=== PATIENT | female | born 1975 | race African-American/Black ===

== ENCOUNTER → 2016-03-28 | Outpatient (CLI) | payer MEDICARE, MEDICAID ==
[~2016-03-28] MED LIST: /AMLO25TA PO; ACET65TA OR; ADVI200T PO; ASPI325T OR; ATIV0.5T3 PO; CALC500T49 PO; CIPR500T89 PO; COLA100C PO; DICY1CAP8 PO; ETOD500T2 PO; HYDR-3713 PO; IRON325T3 PO; IRONCAP2 PO; LABE20TAB PO; MAGNESIUM PO; MAXA5TAB10 PO; MILKSUS PO; MIRA255PW PO; MULT1TAB8 PO; NORCOTAB PO; PERC5TAB PO; PERC5TAB8 OR; PERCOCET PO; RIVAROXABAN PO; SENO8.6T9 PO; Sucralfate PO; VITA500046 PO; VITA500C3 PO; VITAMIN; VITD PO; WELLTAB40 PO; XARE15TA PO; XARE20TA PO; tylenol#3 PO
--- NOTE | 2016-03-28 14:00 | REP ---
Pelvic ultrasound: History: Pelvic and perineal pain. Left ovarian cyst. Findings: The uterus is surgically absent. Bladder duke are smooth. Transabdominal and transvaginal scanning show a normal-appearing right ovary. Its dimensions are 3.9 x 2.2 x 2.3 cm. There is a 1.6 cm follicle cyst in the right ovary. Right ovary Doppler flow is normal with resistive index 0.51. The left ovary is enlarged with dimensions of 7.9 x 5.1 x 6.5 cm. There is a cyst within the left ovary measuring 7.1 x 5.7 x 4.5 cm. This appears simple and anechoic. Left ovarian Doppler flow is normal with resistive index 0.50. Impression: 7.1 cm simple cystic lesion left ovary. Post hysterectomy. Normal right ovary. Signed by Jeremiah Barksdale MD 03/28/2016 08:12 P
== END ==
LOC: M RAD 10:04
PROVIDERS: ATTEND Specialist
DX: N83.202 Unspecified ovarian cyst, left side (principal)

== ENCOUNTER 2016-04-02 18:56 | Emergency (ER) | payer MEDICARE, MEDICAID ==
--- NOTE | 2016-04-02 20:12 | EDDOCDS ---
Physician Documentation [facility] Name: Marci Swanson Age: 40 yrs Sex: Female : 1975 Arrival Date: 04/02/2016 Time: 18:56 Bed TR7 Private MD: Isac Lynn P. Disposition: 04/02/16 19:59 Discharged to Home/Self Care. Impression: Pelvic and perineal pain - chronic. - Condition is Stable. - Discharge Instructions: Pelvic Pain, Female. - Prescriptions for Hydrocodone- Acetaminophen 5-325 mg Oral Tablet - take 1 tablet by ORAL route every 6 hours As needed MDD: 4 tabs; 16 tablet. - Medication Reconciliation, Local Pharmacy Hours form. - Follow up: Isac Lynn; When: Call to arrange an appointment; Reason: Wound/Symptom Recheck, Recheck today's complaints, Worsening of conditions, Continuance of care. - Problem is chronic. - Symptoms are unchanged. Historical: - Allergies: Ampicillin (Hives); Bactrim (Hives); Clear Adhesive Tape (Hives); Toradol (BELL); Tramadol HCl (Swelling); - Home Meds: 1. Eliquis oral oral 1 tab daily - PMHx: Anxiety; Endometriosis; Pancreatitis; PE; Rheumatoid Arthritis; - PSHx: Hysterectomy; R patella tendon; - Social history: Smoking status: Patient states was never smoker of tobacco. No barriers to communication noted, The patient speaks fluent Emirati. - Family history: Not pertinent. - : The pt / caregiver states he / she is on anticoagulants: Eliquis Home medication list is obtained from the patient. - Exposure Risk Screening:: None identified. 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 9 in. (175.26 cm) (R); 18:58 Body Mass Index 33.96 (104.33 kg, 175.26 cm) dd6 Signatures: Jorge Luis Andersen RN RN jmb Selwyn Chappell, PA-C PA-C cc10 Ellis,Nereida,RN RN ms18 MTDD
--- NOTE | 2016-04-02 20:12 | EDDOCDS ---
Nurse's Notes [facility] Name: Marci Swanson Age: 40 yrs Sex: Female : 1975 Arrival Date: 04/02/2016 Time: 18:56 Bed TR7 Private MD: Isac Lynn P. Diagnosis: Pelvic and perineal pain-chronic Presentation: 04/02 19:06 Presenting complaint: Patient states: sharp pains in the abdomen with history of hs1 ovarian cysts which per her md state might need to come out at some point. Patient also complaining of history of endometriosis. Risk factors: the patient reports no vaginal bleeding. Adult Sepsis Screening: The patient does not have new or worsening altered mentation. Patient's respiratory rate is less than 22. Systolic blood pressure is greater than 100. Patient has a qSOFA score of 0- Negative Sepsis Screen. Suicide/Homicide risk assessment- the patient denies having any suicidal and/or homicidal ideations and does not present with any other emotional, behavioral or mental health complaints. 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 Transition of care: patient was not received from another setting of care. 19:06 Acuity: ARVIN Level 3 hs1 19:06 Method Of Arrival: Walkin/Carried/Asstd hs1 Triage Assessment: 19:10 General: Appears in no apparent distress, comfortable, Behavior is appropriate for age, ms18 cooperative. Pain: Location: pelvis Pain currently is 9 out of 10 on a pain scale. HIV screening NA for this visit Offered previously. Neurological: Level of Consciousness is awake, alert, obeys commands, Oriented to person, place, time. Respiratory: Airway is patent Respiratory effort is even, unlabored. GI: Abdomen is non- distended Denies nausea, vomiting. : Reports pain with urination. Derm: Skin is pink, warm & dry. 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 Eliquis oral oral 1 tab daily - PMHx: Anxiety; Endometriosis; Pancreatitis; PE; Rheumatoid Arthritis; - PSHx: Hysterectomy; R patella tendon; - Social history: Smoking status: Patient states was never smoker of tobacco. No barriers to communication noted, The patient speaks fluent Serbian. - Family history: Not pertinent. - : The pt / caregiver states he / she is on anticoagulants: Eliquis Home medication list is obtained from the patient. - Exposure Risk Screening:: None identified. Screenin:08 Screening information is obtained from the patient. Fall risk: No risks identified. jmb Assistance ADL's: requires no assistance with activities of daily living. Abuse/DV Screen: The patient / caregiver reports he/she is: not in a situation that causes fear, pain or injury. Nutritional screening: No deficits noted. Advance Directives: Currently, there is no health care proxy. There is no active DNR order. There is no living will. There is no Power of Spinning Machine Operator. home support is adequate. Assessment: 20:08 General: Patient instructed on discharge instructions. Patient asked if there were any b questions regarding discharge, patient stated no. Patient signed discharge instructions. Patient discharged in stable condition.. GI: Abdomen is non- distended Bowel sounds present X 4 quads. Abd is soft and non tender X 4 quads. Vital Signs: 18:58 BP 155 / 91; Pulse 78; Resp 18 S; Temp 98.7(O); Pulse Ox 98% on R/A; Weight 104.33 kg dd6 (R); Height 5 ft. 9 in. (175.26 cm) (R); 18:58 Body Mass Index 33.96 (104.33 kg, 175.26 cm) dd6 Vitals: 18:58 Log In Time: April 02, 2016 at 18:56. dd6 ED Course: 18:57 Patient visited by Robert Corrales PCA. dd6 18:57 Isac Lynn is Private Physician. dd6 18:57 Patient moved to Waiting dd6 19:00 Patient moved to Pre RCE dd6 19:07 Triage Initiated hs1 19:44 Patient moved to Triage 1 jmb 19:54 Selwyn Chappell [facility]-C [facility] cc10 19:54 Srinivasan Buchanan DO is Attending Physician. cc10 19:54 Patient visited by Selwyn Chappell PA-C. cc10 19:54 Patient visited by Selwyn Chappell PA-C. cc10 19:59 Isac Lynn is Referral Physician. cc10 20:07 Patient moved to TR7 [facility] 20:08 The patient / caregiver is instructed regarding the plan of care and ED course. b 20:08 No IV's were initiated during this patient's visit. No procedures done that require jmb assistance. Order Results: There are currently no results for this order. Outcome: 19:59 Discharge ordered by Provider. cc10 20:08 Discharge Assessment: Patient awake, alert and oriented x 3. No cognitive and/or jmb functional deficits noted. Patient verbalized understanding of disposition instructions. Patient awake and alert. obeys commands, Oriented to person, place and time. Patient verbalized understanding of disposition instructions. Patient has no functional deficits. patient administered narcotics - no. The following High Risk Discharge criteria are identified: None. Discharged to home ambulatory. Condition: stable Condition: improved. Discharge instructions given to patient, Instructed on discharge instructions, follow up and referral plans. medication usage, Demonstrated understanding of instructions, medications, Pt was receptive of discharge instructions/ teaching. Prescriptions given X 1. No special radiology studies were completed. Property sent home with patient. 20:10 Patient left the ED. b Signatures: Robert Corrales, BOOK JACKET COVER MACHINE OPERATOR BOOK JACKET COVER MACHINE OPERATOR dd6 Lynne Peterson RN RN hs1 Jorge Luis Andersen RN RN Selwyn Thomas, PA-C PA-C cc10 Nereida Ellis,RN RN ms18 MTDD
--- NOTE | 2016-04-04 21:12 | EDDOCDS ---
Physician Documentation [facility] Name: Marci Swanson Age: 40 yrs Sex: Female : 1975 Arrival Date: 04/02/2016 Time: 18:56 Bed TR7 Private MD: Isac Lynn P. Disposition: 04/02/16 19:59 Discharged to Home/Self Care. Impression: Pelvic and perineal pain - chronic. - Condition is Stable. - Discharge Instructions: Pelvic Pain, Female. - Prescriptions for Hydrocodone- Acetaminophen 5-325 mg Oral Tablet - take 1 tablet by ORAL route every 6 hours As needed MDD: 4 tabs; 16 tablet. - Medication Reconciliation, Local Pharmacy Hours form. - Follow up: Isac Lynn; When: Call to arrange an appointment; Reason: Wound/Symptom Recheck, Recheck today's complaints, Worsening of conditions, Continuance of care. - Problem is chronic. - Symptoms are unchanged. Historical: - Allergies: Ampicillin (Hives); Bactrim (Hives); Clear Adhesive Tape (Hives); Toradol (BELL); Tramadol HCl (Swelling); - Home Meds: 1. Eliquis oral oral 1 tab daily - PMHx: Anxiety; Endometriosis; Pancreatitis; PE; Rheumatoid Arthritis; - PSHx: Hysterectomy; R patella tendon; - Social history: Smoking status: Patient states was never smoker of tobacco. No barriers to communication noted, The patient speaks fluent Belarusian. - Family history: Not pertinent. - : The pt / caregiver states he / she is on anticoagulants: Eliquis Home medication list is obtained from the patient. - Exposure Risk Screening:: None identified. 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 9 in. (175.26 cm) (R); 18:58 Body Mass Index 33.96 (104.33 kg, 175.26 cm) dd6 MDM: 20:19 COUNTS INCLUDE 234 BEDS AT THE [facility] Payment Agreement was scanned into [employer] and attached to record. teresita 20:19 Financial registration complete. teresita 04/03 12:52 T-Sheet-- Draft Copy was scanned into [employer] and attached to record. gb Signatures: Jyothi Mendez, Reg Reg gb Jorge Luis AndersenRN RN miltonb Selwyn Chappell PA-C PA-C cc10 Nereida Ellis RN RN ms18 Rasheeda Haley The chart was reviewed and I authenticate all verbal orders and agree with the evaluation and treatment provided.Attachments: 04/02 20:19 [facility] [place] Payment Agreement gjb 04/03 12:52 T-Sheet-- Draft Copy gb Chart Complete MTDD
--- NOTE | 2016-04-04 21:12 | EDDOCDS ---
Physician Documentation [facility] Name: Marci Swanson Age: 40 yrs Sex: Female : 1975 Arrival Date: 04/02/2016 Time: 18:56 Bed TR7 Private MD: Isac Lynn P. Disposition: 04/02/16 19:59 Discharged to Home/Self Care. Impression: Pelvic and perineal pain - chronic. - Condition is Stable. - Discharge Instructions: Pelvic Pain, Female. - Prescriptions for Hydrocodone- Acetaminophen 5-325 mg Oral Tablet - take 1 tablet by ORAL route every 6 hours As needed MDD: 4 tabs; 16 tablet. - Medication Reconciliation, Local Pharmacy Hours form. - Follow up: Isac Lynn; When: Call to arrange an appointment; Reason: Wound/Symptom Recheck, Recheck today's complaints, Worsening of conditions, Continuance of care. - Problem is chronic. - Symptoms are unchanged. Historical: - Allergies: Ampicillin (Hives); Bactrim (Hives); Clear Adhesive Tape (Hives); Toradol (BELL); Tramadol HCl (Swelling); - Home Meds: 1. Eliquis oral oral 1 tab daily - PMHx: Anxiety; Endometriosis; Pancreatitis; PE; Rheumatoid Arthritis; - PSHx: Hysterectomy; R patella tendon; - Social history: Smoking status: Patient states was never smoker of tobacco. No barriers to communication noted, The patient speaks fluent Hungarian. - Family history: Not pertinent. - : The pt / caregiver states he / she is on anticoagulants: Eliquis Home medication list is obtained from the patient. - Exposure Risk Screening:: None identified. 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 9 in. (175.26 cm) (R); 18:58 Body Mass Index 33.96 (104.33 kg, 175.26 cm) dd6 MDM: 20:19 [facility] Payment Agreement was scanned into [employer] and attached to record. teresita 20:19 Financial registration complete. teresita 04/03 12:52 T-Sheet-- Draft Copy was scanned into [employer] and attached to record. gb Signatures: Jyothi Mendez, Reg Reg gb Jorge Luis AndersenRN RN miltonb Selwyn Chappell PA-C PA-C cc10 Nereida Ellis RN RN ms18 Rasheeda Haley The chart was reviewed and I authenticate all verbal orders and agree with the evaluation and treatment provided.Attachments: 04/02 20:19 [facility] [place] Payment Agreement gjb 04/03 12:52 T-Sheet-- Draft Copy gb Chart Complete MTDD
--- NOTE | 2016-04-04 21:12 | EDDOCDS ---
Nurse's Notes [facility] Name: Marci Swanson Age: 40 yrs Sex: Female : 1975 Arrival Date: 04/02/2016 Time: 18:56 Bed TR7 Private MD: Isac Lynn P. Diagnosis: Pelvic and perineal pain-chronic Presentation: 04/02 19:06 Presenting complaint: Patient states: sharp pains in the abdomen with history of hs1 ovarian cysts which per her md state might need to come out at some point. Patient also complaining of history of endometriosis. Risk factors: the patient reports no vaginal bleeding. Adult Sepsis Screening: The patient does not have new or worsening altered mentation. Patient's respiratory rate is less than 22. Systolic blood pressure is greater than 100. Patient has a qSOFA score of 0- Negative Sepsis Screen. Suicide/Homicide risk assessment- the patient denies having any suicidal and/or homicidal ideations and does not present with any other emotional, behavioral or mental health complaints. 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 Transition of care: patient was not received from another setting of care. 19:06 Acuity: ARVIN Level 3 hs1 19:06 Method Of Arrival: Walkin/Carried/Asstd hs1 Triage Assessment: 19:10 General: Appears in no apparent distress, comfortable, Behavior is appropriate for age, ms18 cooperative. Pain: Location: pelvis Pain currently is 9 out of 10 on a pain scale. HIV screening NA for this visit Offered previously. Neurological: Level of Consciousness is awake, alert, obeys commands, Oriented to person, place, time. Respiratory: Airway is patent Respiratory effort is even, unlabored. GI: Abdomen is non- distended Denies nausea, vomiting. : Reports pain with urination. Derm: Skin is pink, warm & dry. 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 Eliquis oral oral 1 tab daily - PMHx: Anxiety; Endometriosis; Pancreatitis; PE; Rheumatoid Arthritis; - PSHx: Hysterectomy; R patella tendon; - Social history: Smoking status: Patient states was never smoker of tobacco. No barriers to communication noted, The patient speaks fluent Sierra Leonean. - Family history: Not pertinent. - : The pt / caregiver states he / she is on anticoagulants: Eliquis Home medication list is obtained from the patient. - Exposure Risk Screening:: None identified. Screenin:08 Screening information is obtained from the patient. Fall risk: No risks identified. jmb Assistance ADL's: requires no assistance with activities of daily living. Abuse/DV Screen: The patient / caregiver reports he/she is: not in a situation that causes fear, pain or injury. Nutritional screening: No deficits noted. Advance Directives: Currently, there is no health care proxy. There is no active DNR order. There is no living will. There is no Power of Dog Boarder. home support is adequate. Assessment: 20:08 General: Patient instructed on discharge instructions. Patient asked if there were any b questions regarding discharge, patient stated no. Patient signed discharge instructions. Patient discharged in stable condition.. GI: Abdomen is non- distended Bowel sounds present X 4 quads. Abd is soft and non tender X 4 quads. Vital Signs: 18:58 BP 155 / 91; Pulse 78; Resp 18 S; Temp 98.7(O); Pulse Ox 98% on R/A; Weight 104.33 kg dd6 (R); Height 5 ft. 9 in. (175.26 cm) (R); 18:58 Body Mass Index 33.96 (104.33 kg, 175.26 cm) dd6 Vitals: 18:58 Log In Time: April 02, 2016 at 18:56. dd6 ED Course: 18:57 Patient visited by Robert Corrales PCA. dd6 18:57 Isac Lynn is Private Physician. dd6 18:57 Patient moved to Waiting dd6 19:00 Patient moved to Pre RCE dd6 19:07 Triage Initiated hs1 19:44 Patient moved to Triage 1 jmb 19:54 Selwyn Chappell PA-C [facility] cc[facility] 19:54 Srinivasan Buchanan DO is Attending Physician. cc10 19:54 Patient visited by Selwyn Chappell PA-C. cc10 19:54 Patient visited by Selwyn Chappell PA-C. cc10 19:59 Isac Lynn is Referral Physician. cc10 20:07 Patient moved to TR7 b 20:08 The patient / caregiver is instructed regarding the plan of care and ED course. jmb 20:08 No IV's were initiated during this patient's visit. No procedures done that require jmb assistance. 20:18 Patient name changed from Marci\S\L\S\Sky\S\ to Marci\S\ \S\Sky. EDMS 20:19 [facility] [place] Agreement was scanned into [employer] and attached to record. gjb 04/03 12:52 T-Sheet-- Draft Copy was scanned into [employer] and attached to record. gb Order Results: There are currently no results for this order. Outcome: 04/02 19:59 Discharge ordered by Provider. cc10 20:08 Discharge Assessment: Patient awake, alert and oriented x 3. No cognitive and/or jmb functional deficits noted. Patient verbalized understanding of disposition instructions. Patient awake and alert. obeys commands, Oriented to person, place and time. Patient verbalized understanding of disposition instructions. Patient has no functional deficits. patient administered narcotics - no. The following High Risk Discharge criteria are identified: None. Discharged to home ambulatory. Condition: stable Condition: improved. Discharge instructions given to patient, Instructed on discharge instructions, follow up and referral plans. medication usage, Demonstrated understanding of instructions, medications, Pt was receptive of discharge instructions/ teaching. Prescriptions given X 1. No special radiology studies were completed. Property sent home with patient. 20:10 Patient left the ED. robert Signatures: [facility] Jyothi Mendez, Reg Reg gb Robert Corrales, HEALTHCARE SALES REPRESENTATIVE HEALTHCARE SALES REPRESENTATIVE dd6 yLnne Peterson, RN RN hs1 Jorge Luis AndersenRN RN miltonb Selwyn Chappell, PA-C PA-C cc10 Nereida Ellis RN RN ms18 Rasheeda Haley Chart Complete MTDD
[2016-04-13] MEDS ORDERED: MULT1CHW PO (09:16)
[2016-04-13] MEDS ORDERED: VITA250L PO (09:16)
[2016-04-13] MEDS ORDERED: HYDR-3713 PO (09:16)
[2016-04-13] MEDS ORDERED: VITA200038 PO (09:16)
[2016-04-13] MEDS ORDERED: HEPA10004 INJ (09:16)
== END 2016-04-02 20:10 | disposition home or self-care (01) ==
LOC: M ED 18:56
DX: G89.29 Other chronic pain (principal); R10.2 Pelvic and perineal pain; F41.9 Anxiety disorder, unspecified; M06.9 Rheumatoid arthritis, unspecified; Z86.711 Personal history of pulmonary embolism; Z90.79 Acquired absence of other genital organ(s); Z79.01 Long term (current) use of anticoagulants; Z88.1 Allergy status to other antibiotic agents; Z88.5 Allergy status to narcotic agent; Z91.09 Other allergy status, other than to drugs and biological substances

== ENCOUNTER → 2016-04-14 | Outpatient (CLI) | payer MEDICARE, MEDICAID ==
[~2016-04-14] MED LIST changes: +HEPA10004 INJ; +MULT1CHW PO; +VITA200038 PO; +VITA250L PO
[2016-04-14 12:27] LABS: MEAN CORPUSCULAR HEMOGLOBIN 26.3 pg (27.0-33.0); MEAN CORPUSCULAR HGB CONC 31.1 g/dl (32.0-36.5); MEAN CORPUSCULAR VOLUME 84.5 fl (80.0-96.0); WHITE BLOOD COUNT 7.2 K/mm3 (4.0-10.0)
--- NOTE | 2016-04-15 11:21 | ECGEPIP ---
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
== END ==
LOC: M LAB 11:04
PROVIDERS: ATTEND Anesthesiology
DX: Z01.812 Encounter for preprocedural laboratory examination (principal); R00.1 Bradycardia, unspecified; I73.9 Peripheral vascular disease, unspecified; Z86.711 Personal history of pulmonary embolism

== ENCOUNTER → 2016-04-20 | Day surgery (SDC) | payer MEDICARE, MEDICAID ==
[~2016-04-20] VITALS: Ht 175.3 cm; Wt 106.6 kg
[~2016-04-20] MED LIST changes: +BUPIVACAINE HCL 0.25% 30 ML VIAL As Ordered ONE; +BUPIVACAINE HCL 0.25% 30 ML VIAL XX ONE; +GLYCOPYRROLATE INJ 0.2 MG/ML 2 ML VIAL As Ordered ONE; +HYDROmorphone HCL 2 MG/ML 1ML VIAL (J1170) As Ordered ONE; +LIDOCAINE 2% INJ 100 MG/5 ML SDV (FOR ANES.) As Ordered ONE; +LOVE1INJ SC; +LR 1,000 ML IV SCH; +MEPERIDINE INJ 25 MG/ML VIAL (J2175) IV PRN; +METHYLENE BLUE 1% 10 ML VIAL (Q9968) As Ordered ONE; +METOCLOPRAMIDE INJ 10MG/2ML VIAL (J2765) IV PRN; +MIDAZOLAM INJ 2 MG/2 ML VIAL (J2250) As Ordered ONE; +NEOSTIGMINE 1MG/ML 5 ML SYRINGE (J2710) As Ordered ONE; +NORCO, ANEXSIA 5/325MG TABLET (HYDROcodone/ACETAMINOPHEN) PO PRN; +ONDANSETRON 4MG/2ML VIAL (J2405) As Ordered ONE; +ONDANSETRON 4MG/2ML VIAL (J2405) IV PRN; +PERCOCET 5MG/325MG TAB PO PRN; +PROPOFOL 200 MG/20 ML VIAL As Ordered ONE; +ROCURONIUM BROMIDE 50 MG/5 ML VIAL As Ordered ONE; +dexameTHASONE 4 MG/ML 1ML VIAL (J1100) As Ordered ONE; +fentaNYL 100 MCG/2 ML INJECTION (J3010) As Ordered ONE; +fentaNYL 250 MCG/5 ML INJECTION (J3010) As Ordered ONE
[2016-04-20] MEDS: fentaNYL 100 MCG/2 ML INJECTION (J3010) IV PRN ×4 (10:48→11:03)
[2016-04-20 14:30] VITALS: BP 167/92
--- NOTE | 2016-04-20 16:44 | RO ---
DATE OF PROCEDURE: 04/20/2016 PREOPERATIVE DIAGNOSIS: Left ovarian cyst. POSTOPERATIVE DIAGNOSIS: Left ovarian cyst. PROCEDURE: Laparoscopic left ovarian cystectomy, lysis of adhesions, cystoscopy. SURGEON: Isac Lynn MD SELF PAY REPRESENTATIVE: Maru Arthur ANESTHESIA: General endotracheal. ESTIMATED BLOOD LOSS: 100 mL. URINE OUTPUT: 2000 mL. FINDINGS: 8 cm cystoadenoma of the left ovary. Normal appearing Right ovary. Mild endometriosis in the pelvis. Left ovary was adhesed medially to the sigmoid colon and inferiorly to the bladder, laterally to the pelvic side wall including iliac vessels and ureter. There were bilateral ureteral jets identified on cystoscopy. DESCRIPTION OF PROCEDURE: Operative summary: The patient taken to the operating room, where general endotracheal anesthesia was induced. She was prepped and draped in sterile fashion in the dorsal lithotomy position. A Sosa catheter was placed. A sponge stick was placed in the vagina. A periumbilical incision was made with a scalpel. A Veress needle was placed through this incision while tenting up on the skin of the abdomen. Intra-abdominal location of the Veress needle was assessed with the use of a saline-filled syringe. A pneumoperitoneum was created. An 11 mm trocar was placed through this incision with tenting up on skin of the abdomen. Three 5 mm suprapubic ports were placed under direct visualization without difficulty. Attention was turned to the pelvic mass. The mass was grasped with a grasping instrument and blunt dissection was first undertaken. Eventually sharp dissection using endoshears as well as a PK dissecting device was undertaken. The sigmoid colon was dissected off the pelvic mass immediately. Adhesions of the pelvic mass of the bladder were dissected off sharply. Lateral attachments to the pelvic sidewall were dissected sharply. The extra iliac vessel was exposed and found to be adjacent to the mass. The left ureter was identified coursing along the inferolateral border of the mass itself. The cyst was opened and clear fluid was evacuated using the suction supply chain technician. The cyst was amputated and removed through the umbilical port. Excess cyst capsule was then bluntly dissected off the ovary. The cyst was removed in it entirety. Part of the ovary was not able to be removed because it was essentially adhered to critical structures of the ureter and extra iliac vessels. The decision was made to leave the ovary in place and not risk the complication. Cystoscopy was performed using a 70 degree cystoscope. The patient received Methylene blue dye intravenously. Bilateral ureteral jets were identified and the bladder mucosa appeared normal. Darvin was sprayed over raw surface areas of the pelvis and good hemostasis was noted. The pneumoperitoneum was released. All instruments removed. Sponge, needle, and instrument counts were correct. The skin was closed with 4-0 Monocryl subcuticular sutures. Patient went to the recovery room in stable condition.
== END | disposition home or self-care (01) ==
LOC: M SDC 05:51
PROVIDERS: ATTEND Specialist
DX: D27.1 Benign neoplasm of left ovary (principal); Z86.711 Personal history of pulmonary embolism; Z88.0 Allergy status to penicillin; Z88.2 Allergy status to sulfonamides; Z88.8 Allergy status to other drugs, medicaments and biological substances; Z79.02 Long term (current) use of antithrombotics/antiplatelets; F41.9 Anxiety disorder, unspecified
CPT/HCPCS: 36415; 58662; 85014; 85018; 88305; A6024; J1100; J1170; J2250; J2405; J2710; J2765; J3010; Q9968

== ENCOUNTER 2016-04-28 11:11 | Emergency (ER) | payer MEDICARE, MEDICAID ==
[~2016-04-28 11:11] MED LIST changes: -BUPIVACAINE HCL 0.25% 30 ML VIAL As Ordered ONE; -BUPIVACAINE HCL 0.25% 30 ML VIAL XX ONE; -GLYCOPYRROLATE INJ 0.2 MG/ML 2 ML VIAL As Ordered ONE; -HYDROmorphone HCL 2 MG/ML 1ML VIAL (J1170) As Ordered ONE; -LIDOCAINE 2% INJ 100 MG/5 ML SDV (FOR ANES.) As Ordered ONE; -LR 1,000 ML IV SCH; -MEPERIDINE INJ 25 MG/ML VIAL (J2175) IV PRN; -METHYLENE BLUE 1% 10 ML VIAL (Q9968) As Ordered ONE; -METOCLOPRAMIDE INJ 10MG/2ML VIAL (J2765) IV PRN; -MIDAZOLAM INJ 2 MG/2 ML VIAL (J2250) As Ordered ONE; -NEOSTIGMINE 1MG/ML 5 ML SYRINGE (J2710) As Ordered ONE; -NORCO, ANEXSIA 5/325MG TABLET (HYDROcodone/ACETAMINOPHEN) PO PRN; -ONDANSETRON 4MG/2ML VIAL (J2405) As Ordered ONE; -ONDANSETRON 4MG/2ML VIAL (J2405) IV PRN; -PERCOCET 5MG/325MG TAB PO PRN; -PROPOFOL 200 MG/20 ML VIAL As Ordered ONE; -ROCURONIUM BROMIDE 50 MG/5 ML VIAL As Ordered ONE; -dexameTHASONE 4 MG/ML 1ML VIAL (J1100) As Ordered ONE; -fentaNYL 100 MCG/2 ML INJECTION (J3010) As Ordered ONE; -fentaNYL 250 MCG/5 ML INJECTION (J3010) As Ordered ONE
[2016-04-28 12:13] LABS: BASO % 0.2 % (0.0-1.0); EOS # 0.4 K/mm3 (0.0-0.50); EOS % 3.3 % (0.0-3.0); LARGE UNSTAINED CELL # 0.1 K/mm3 (0.0-0.4); LARGE UNSTAINED CELL % 0.8 % (0.0-4.0); LYMPH % 17.4 % (24.0-44.0); MEAN CORPUSCULAR HEMOGLOBIN 26.3 pg (27.0-33.0); MEAN CORPUSCULAR HGB CONC 31.7 g/dl (32.0-36.5); MONO # 0.5 K/mm3 (0.0-0.8); MONO % 4.8 % (0.0-5.0); NEUTROPHILS # 8.2 K/mm3 (1.8-7.7); NEUTROPHILS % 73.6 % (36.0-66.0); PLATELET COUNT, AUTOMATED 299 k/mm3 (150-450); RED CELL DISTRIBUTION WIDTH 12.9 % (11.5-14.5); WHITE BLOOD COUNT 11.2 K/mm3 (4.0-10.0)
[2016-04-28 12:28] LABS: ALBUMIN 3.5 GM/DL (3.2-5.2); ALBUMIN/GLOBULIN RATIO 0.78 (1.00-1.93); ALKALINE PHOSPHATASE 119 U/L (45-117); ALT/SGPT 60 U/L (12-78); ANION GAP 8 MEQ/L (8-16); AST/SGOT 30 U/L (15-37); BILIRUBIN,DIRECT 0.1 MG/DL (0.0-0.2); BILIRUBIN,TOTAL 0.5 MG/DL (0.2-1.0); BLOOD UREA NITROGEN 19 MG/DL (7-18); CALCIUM LEVEL 8.8 MG/DL (8.5-10.1); CARBON DIOXIDE LEVEL 29 MEQ/L (21-32); CHLORIDE LEVEL 104 MEQ/L (98-107); CREATININE FOR GFR 1.06 MG/DL (0.55-1.02); GLOMERULAR FILTRATION RATE > 60.0 (>58); GLUCOSE, FASTING 106 MG/DL (70-105); POTASSIUM SERUM 4.2 MEQ/L (3.5-5.1); SODIUM LEVEL 141 MEQ/L (136-145)
[2016-04-28] MEDS ORDERED: MORPHINE 4 MG/ML 1ML SYRINGE As Ordered ONE ×2 (12:32→13:34)
[2016-04-28] MEDS ORDERED: ONDANSETRON 4MG/2ML VIAL (J2405) As Ordered ONE (12:32)
[2016-04-28] MEDS ORDERED: GASTROGRAFIN SOLUTION 30ML (Q9963) As Ordered ONE (13:45)
[2016-04-28] MEDS ORDERED: ISOVUE-370 76% 100ML VIAL (Q9967) As Ordered ONE (15:08)
[2016-04-28] MEDS ORDERED: diphenhydrAMINE 25 MG CAP As Ordered ONE ×2 (15:23→15:25)
[2016-04-28] MEDS ORDERED: fentaNYL 100 MCG/2 ML INJECTION (J3010) As Ordered ONE (15:24)
--- NOTE | 2016-04-28 15:38 | REP ---
Clinical: Lower abdominal pain. Technique: Axial contrast enhanced images from the lung bases to the pubic symphysis using oral and 100 ml Isovue 370 intravenous contrast material. Comparison: 08/05/2015. Findings: Lung bases clear. Visualized heart and pericardium normal. Atherosclerotic changes to the coronary arteries noted. Liver, spleen, pancreas, gallbladder, bilateral adrenal glands and kidneys are normal. The enteric system is without obstruction or acute inflammatory process. Normal terminal ileum and appendix identified in the right lower quadrant. Sigmoid diverticula noted without acute diverticulitis. Pelvis demonstrates normal bladder and heterogeneous appearance to the bilateral ovaries which likely represent physiologic change. The patient is status post hysterectomy. No pelvic fluid or ascites. No mass or abscess/drainable collection. Vasculature is normal and without aneurysm. No free air. No adenopathy. Skeletal structures intact. Impression: No acute intra-abdominal or pelvic pathology appreciated. Sigmoid diverticula without acute diverticulitis. Signed by Jones Maynard MD 04/28/2016 03:29 P
--- NOTE | 2016-04-28 15:40 | REP ---
Clinical: Acute chest pain and shortness of breath. Technique: Axial contrast enhanced images from the thoracic inlet to the upper abdomen using 100 ml Isovue 370 intravenous contrast material with coronal and sagittal re-formations. Findings: Satisfactory enhancement of the pulmonary vasculature is achieved and no filling defects are identified to suggest pulmonary embolus. Thoracic aorta is normal caliber without aneurysm or dissection. Heart and pericardium are normal. Bilateral lung arriola demonstrate mild posterior dependent changes and are otherwise clear without acute pulmonary parenchymal consolidation or atelectasis. No nodule or mass lesion. No pleural effusion/reaction. No pneumothorax. No adenopathy. Impression: No evidence for pulmonary embolus. No acute pleuroparenchymal or mediastinal process. Signed by Jones Maynard MD 04/28/2016 03:31 P
--- NOTE | 2016-04-28 16:19 | EDDOCDS ---
Nurse's Notes [facility] Name: Marci Swanson Age: 40 yrs Sex: Female : 1975 Arrival Date: 04/28/2016 Time: 11:11 Bed 8 Private MD: Diagnosis: Abdominal and pelvic pain;Other chest pain;Dehydration-Mild Presentation: 04/28 11:18 Presenting complaint: Patient states: had left ovary removed last Saturday. Pt reports dsf abdominal pain, hives, itching and not feeling well. Risk factors: the patient reports no vaginal bleeding. Adult Sepsis Screening: The patient does not have new or worsening altered mentation. Patient's respiratory rate is less than 22. Systolic blood pressure is greater than 100. Patient has a qSOFA score of 0- Negative Sepsis Screen. Suicide/Homicide risk assessment- the patient denies having any suicidal and/or homicidal ideations and does not present with any other emotional, behavioral or mental health complaints. Status: Patient is not a career services officer or dependent. Transition of care: patient was not received from another setting of care. 11:18 Acuity: ARVIN Level 3 dsf 11:18 Method Of Arrival: Walkin/Carried/Asstd dsf Triage Assessment: 11:20 General: Appears in no apparent distress, Behavior is appropriate for age, cooperative. dsf Pain: Location: left anterior chest wall Pain currently is 3 out of 10 on a pain scale. Pain does not radiate. Quality of pain is described as sharp, Pain began 4 days ago Is intermittent. Pain: Location: right lower quadrant and left lower quadrant Pain currently is 8 out of 10 on a pain scale. Quality of pain is described as crampy, sharp. HIV screening NA for this visit Offered previously. Respiratory: Reports shortness of breath at rest on exertion since 2 days ago. GI: Reports lower abdominal pain, Pain is 8 out of 10 on a pain scale. 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 hydrocodone-acetaminophen 5-325 mg Oral tab 2 tabs every 6 hours (Last dose: 04/27/2016) 2. Lovenox 40 mg/0.4 mL Sub-Q syrg once daily (Last dose: 04/27/2016) - PMHx: Anxiety; Endometriosis; Pancreatitis; PE; Rheumatoid Arthritis; - PSHx: Ovarian Cystectomy- Left; Hysterectomy; R patella tendon; - Social history: Smoking status: Patient states was never smoker of tobacco. No barriers to communication noted, The patient speaks fluent Bengali, Speaks appropriately for age. - Family history: Not pertinent. - : The pt / caregiver states he / she is on anticoagulants: Lovenox. Home medication list is obtained from the patient. - Exposure Risk Screening:: None identified. Screenin:51 Screening information is obtained from the patient. Fall risk: No risks identified. ja5 Assistance ADL's: requires no assistance with activities of daily living. Abuse/DV Screen: The patient / caregiver reports he/she is: not in a situation that causes fear, pain or injury. Nutritional screening: On no prescribed diet. Advance Directives: Currently, there is a health care proxy, Monie Boyle, mother. home support is inadequate. Assessment: 11:47 General: Appears uncomfortable, Behavior is appropriate for age, cooperative. Pain: ja5 Location: right lower quadrant and left lower quadrant Pain currently is 8 out of 10 on a pain scale. Neurological: Level of Consciousness is awake, alert, Oriented to person, place, time. Cardiovascular: Capillary refill < 3 seconds Heart tones S1 S2 present. Respiratory: Airway is patent Respiratory effort is even, unlabored, Breath sounds are clear bilaterally. GI: Abdomen is obese, bruised on right lower quadrant and left lower quadrant at lap sites from surgery Bowel sounds present X 4 quads. Abd is tender to palpation in right lower quadrant and left lower quadrant. Derm: Skin is pink, warm & dry. 12:20 General: Patient is laying in stretcher with visitors at bedside. She is awake and ja5 alert with even unlabored respirations. 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 Patient states that she has no needs at this time. . 13:37 General: Patient is laying in stretcher, states that she is still having pain to her ja5 abdomen. Her respirations are even and unlabored, SR on salesman/owner. Visitors at bedside, bed in low position, call light in reach, watching television.. 14:52 General: Patient in stretcher with visitors at bedside, NS IV fluids running, patient ja5 is awake and alert, SR on salesman/owner. Respirations are even and unlabored. Patient states the two doses of morphine "hardly touched my pain" and rates it at a 7/10 with sharp pains running up her vagina. Provider notified. . 16:13 General: Appears in no apparent distress, Behavior is cooperative, drowsy. General: ld5 First contact with pt. This RN in to discharge pt. Pt requesting pain medication to go home with. This was discussed with provider. Provider recommended tylenol and motrin and following up with Dr. Lynn on Saturday. Pain: Pain currently is 6 out of 10 on a pain scale. Neurological: Level of Consciousness is awake, obeys commands. Respiratory: Airway is patent Respiratory effort is even, unlabored. Vital Signs: 11:15 BP 196 / 110; Pulse 108; Resp 18; Temp 97.2(T); Pulse Ox 98% on R/A; Weight 95.25 kg lr2 (R); Height 5 ft. 9 in. (175.26 cm) (R); Pain 8/10; 11:45 BP 156 / 86 (auto/); ja5 11:46 Pulse 90 MON; Pulse Ox 97% ; ja5 12:38 Pulse 76 MON; Pulse Ox 99% ; ja5 12:39 BP 156 / 91 (auto/); ja5 13:08 Pulse 74 MON; Pulse Ox 95% ; ja5 13:09 BP 150 / 91 (auto/); ja5 13:38 Pulse 74 MON; Pulse Ox 98% ; ja5 13:39 BP 146 / 82 (auto/); ja5 13:40 Pain 8/10; ja5 14:08 Pulse 74 MON; Pulse Ox 98% ; ja5 14:09 BP 154 / 105 (auto/); ja5 14:52 Pain 7/10; ja5 14:58 BP 135 / 90; Pulse 74; Resp 16; Temp 97.1; Pulse Ox 98% on R/A; Pain 7/10; ja5 16:10 BP 146 / 80; Pulse 82 MON; Resp 16; Temp 97.2; Pulse Ox 97% ; ld5 11:15 Body Mass Index 31.01 (95.25 kg, 175.26 cm) lr2 Vitals: 11:15 Log In Time: April 28, 2016 at 11:11. lr2 ED Course: 11:13 Patient visited by Shirin Lancaster. lr2 11:13 Patient moved to Waiting lr2 11:14 Patient moved to Pre RCE lr2 11:19 Triage Initiated dsf 11:23 Patient moved to PR / srm 11:37 Patient visited by Olivia Cota PCA. ct3 11:37 Linette Mccabe,RN is Primary Nurse. srm 11:37 Patient moved to 8 srm 11:37 EKG done. (by ED staff). Reviewed by Mariposa Thompson MD. ct3 12:08 Basic Metabolic Profile Sent. ja5 12:08 CBC with Diff Sent. ja5 12:08 Lipase Sent. ja5 12:09 Cleo Che FNP is PHCP. le 12:09 Inserted saline lock: 20 gauge in right antecubital area. ja5 12:11 Patient visited by Linette Mccabe RN. ja5 12:13 Patient visited by Cleo Che FNP. le 12:17 Patient visited by Cleo Che FNP. le 12:19 Primary Nurse role handed off by Linette Mccabe,NICHOLE ml6 12:29 Linette Mccabe RN is Primary Nurse. ja5 12:35 Patient name changed from Marci\\S\\Latarish\\S\\Sky\\S\\ to Marci\\S\\ \\S\\Sky. EDMS 12:36 [facility] Payment Agreement was scanned into [employer] and attached to record. lg 12:44 Patient visited by Linette Mccabe RN. ja5 12:44 Urinalysis Sent. ja5 13:35 Patient visited by Linette Mccabe RN. ja5 13:50 Patient visited by Linette Mccabe RN. ja5 14:55 Patient visited by Linette Mccabe RN. ja5 15:22 Patient visited by Linette Mccabe RN. ja5 15:48 CT ABD & PELVIS: IV and Oral Contrast Returned. EDMS 15:48 CT Chest Angio R/O PE Returned. EDMS 15:50 Isac Lynn MD is Referral Physician. le 16:10 The patient / caregiver is instructed regarding the plan of care and ED course. ld5 Accompanied by Patient has correct armband on for positive identification. 16:10 Discontinued lock intact, bleeding controlled, pressure dressing applied, No ld5 redness/swelling at site. No procedures done that require assistance. 16:18 Patient visited by Shirin Flores RN. ld5 Administered Medications: 12:35 Drug: NS 0.9% 1000 ml [sodium chloride 0.9 % intravenous solution] Route: IV; Rate: ja5 bolus; Site: right antecubital; 12:35 Drug: morphine 4 mg [morphine 4 mg/mL intravenous cartridge (1 mL)] Route: IVP; Site: ja5 right antecubital; 12:40 Drug: Ondansetron 4 mg [ondansetron HCl 2 mg/mL intravenous solution (2 mL)] Route: ja5 IVP; Site: right antecubital; 13:40 Drug: morphine 4 mg [morphine 4 mg/mL intravenous cartridge (1 mL)] Route: IVP; Site: ja5 right antecubital; 14:52 Follow up: Pain 09/17 Adult ja5 13:51 Drug: Diatrizoate Meglumine & Sodium 10 ml [diatrizoate meglumine and diat.sodium 66 bcj %-10 % oral solution (10 mL)] Route: PO; 14:28 Drug: Diatrizoate Meglumine & Sodium 10 ml [diatrizoate meglumine and diat.sodium 66 bcj %-10 % oral solution (10 mL)] Route: PO; 14:43 Drug: NS 0.9% 1000 ml [sodium chloride 0.9 % intravenous solution] Route: IV; Rate: 100 ja5 mL/hr; Site: right antecubital; 16:18 Follow up: IV Status: Completed infusion; IV Intake: 200ml ld5 15:27 Drug: diphenhydrAMINE 50 mg [diphenhydramine 25 mg capsule (2 caps)] Route: PO; ja5 15:29 Drug: fentaNYL (PF) 50 mcg [fentanyl (PF) 50 mcg/mL injection solution (1 mL)] Route: ja5 IVP; Site: right antecubital; 16:18 Follow up: Response: Confirmed pt not driving.; Pain is decreased ld5 Intake: 16:18 IV: 200.00ml; Total: 200.00ml. ld5 Order Results: Lab Order: Basic Metabolic Profile; SPEC'M 04/28/16 12:03 Test: GLUCOSE, FASTING; Value: 106; Range: 70-105; Abnormal: Above high normal; Units: MG/DL; Status: F Test: BLOOD UREA NITROGEN; Value: 19; Range: 7-18; Abnormal: Above high normal; Units: MG/DL; Status: F Test: CREATININE FOR GFR; Value: 1.06; Range: 0.55-1.02; Abnormal: Above high normal; Units: MG/DL; Status: F Test: GLOMERULAR FILTRATION RATE; Value: > 60.0; Range: >58; Status: F Test: SODIUM LEVEL; Value: 141; Range: 136-145; Units: MEQ/L; Status: F Test: POTASSIUM SERUM; Value: 4.2; Range: 3.5-5.1; Units: MEQ/L; Status: F Test: CHLORIDE LEVEL; Value: 104; Range: 98-107; Units: MEQ/L; Status: F Test: CARBON DIOXIDE LEVEL; Value: 29; Range: 21-32; Units: MEQ/L; Status: F Test: ANION GAP; Value: 8; Range: 8-16; Units: MEQ/L; Status: F Test: CALCIUM LEVEL; Value: 8.8; Range: 8.5-10.1; Units: MG/DL; Status: F Test Note: ; Units are mL/min/1.73 m2 Chronic Kidney Disease Staging per NKF: Stage I & II GFR >=60 Normal to Mildly Decreased Stage III GFR 30-59 Moderately Decreased Stage IV GFR 15-29 Severely Decreased Stage V GFR <15 Very Little GFR Left ESRD GFR <15 on CUSTOMS INSPECTOR Lab Order: CBC with Diff; SPEC'M 04/28/16 12:03 Test: WHITE BLOOD COUNT; Value: 11.2; Range: 4.0-10.0; Abnormal: Above high normal; Units: K/mm3; Status: F Test: RED BLOOD COUNT; Value: 4.66; Range: 4.00-5.40; Units: M/mm3; Status: F Test: HEMOGLOBIN; Value: 12.3; Range: 12.0-16.0; Units: g/dl; Status: F Test: HEMATOCRIT; Value: 38.7; Range: 36.0-47.0; Units: %; Status: F Test: MEAN CORPUSCULAR VOLUME; Value: 83.0; Range: 80.0-96.0; Units: fl; Status: F Test: MEAN CORPUSCULAR HEMOGLOBIN; Value: 26.3; Range: 27.0-33.0; Abnormal: Below low normal; Units: pg; Status: F Test: MEAN CORPUSCULAR HGB CONC; Value: 31.7; Range: 32.0-36.5; Abnormal: Below low normal; Units: g/dl; Status: F Test: RED CELL DISTRIBUTION WIDTH; Value: 12.9; Range: 11.5-14.5; Units: %; Status: F Test: PLATELET COUNT, AUTOMATED; Value: 299; Range: 150-450; Units: k/mm3; Status: F Test: NEUTROPHILS %; Value: 73.6; Range: 36.0-66.0; Abnormal: Above high normal; Units: %; Status: F Test: LYMPH %; Value: 17.4; Range: 24.0-44.0; Abnormal: Below low normal; Units: %; Status: F Test: MONO %; Value: 4.8; Range: 0.0-5.0; Units: %; Status: F Test: EOS %; Value: 3.3; Range: 0.0-3.0; Abnormal: Above high normal; Units: %; Status: F Test: BASO %; Value: 0.2; Range: 0.0-1.0; Units: %; Status: F Test: LARGE UNSTAINED CELL %; Value: 0.8; Range: 0.0-4.0; Units: %; Status: F Test: NEUTROPHILS #; Value: 8.2; Range: 1.8-7.7; Abnormal: Above high normal; Units: K/mm3; Status: F Test: LYMPH #; Value: 2.0; Range: 1.5-4.5; Units: K/mm3; Status: F Test: MONO #; Value: 0.5; Range: 0.0-0.8; Units: K/mm3; Status: F Test: EOS #; Value: 0.4; Range: 0.0-0.50; Units: K/mm3; Status: F Test: BASO #; Value: 0.0; Range: 0.0-0.2; Units: K/mm3; Status: F Test: LARGE UNSTAINED CELL #; Value: 0.1; Range: 0.0-0.4; Units: K/mm3; Status: F Lab Order: Lipase; [facility] 04/28/16 12:03 Test: LIPASE; Value: 139; Range: 73-393; Units: U/L; Status: F Lab Order: Liver Profile; [facility] 04/28/16 12:03 Test: AST/SGOT; Value: 30; Range: 15-37; Units: U/L; Status: F Test: ALT/SGPT; Value: 60; Range: 12-78; Units: U/L; Status: F Test: ALKALINE PHOSPHATASE; Value: 119; Range: 45-117; Abnormal: Above high normal; Units: U/L; Status: F Test: BILIRUBIN,TOTAL; Value: 0.5; Range: 0.2-1.0; Units: MG/DL; Status: F Test: BILIRUBIN,DIRECT; Value: 0.1; Range: 0.0-0.2; Units: MG/DL; Status: F Test: TOTAL PROTEIN; Value: 8.0; Range: 6.4-8.2; Units: GM/DL; Status: F Test: ALBUMIN; Value: 3.5; Range: 3.2-5.2; Units: GM/DL; Status: F Test: ALBUMIN/GLOBULIN RATIO; Value: 0.78; Range: 1.00-1.93; Abnormal: Below low normal; Status: F Lab Order: Urinalysis; [facility] 04/28/16 11:40 Test: APPEARANCE, URINE; Value: CLEAR; Range: CLEAR; Status: F Test: COLOR, URINE; Value: YELLOW; Range: YELLOW; Status: F Test: PH,URINE; Value: 6.0; Range: 5.0-9.0; Units: UNITS; Status: F Test: SPECIFIC GRAVITY URINE AUTO; Value: 1.025; Range: 1.002-1.035; Status: F Test: PROTEIN, URINE AUTO; Value: NEGATIVE; Range: NEGATIVE; Units: mg/dL; Status: F Test: GLUCOSE, URINE (UA) AUTO; Value: NEGATIVE; Range: NEGATIVE; Units: mg/dL; Status: F Test: KETONE, URINE AUTO; Value: NEGATIVE; Range: NEGATIVE; Units: mg/dL; Status: F Test: UROBILINOGEN, URINE AUTO; Value: 0.2; Range: 0.0-2.0; Units: mg/dL; Status: F Test: BILIRUBIN, URINE AUTO; Value: NEGATIVE; Range: NEGATIVE; Status: F Test: NITRITE, URINE AUTO; Value: NEGATIVE; Range: NEGATIVE; Status: F Test: LEUKOCYTE ESTERASE, URINE AUTO; Value: TRACE; Range: NEGATIVE; Abnormal: Above high normal; Status: F Test: BLOOD, URINE BLOOD; Value: 2+; Range: NEGATIVE; Abnormal: Above high normal; Status: F Test: WBC, URINE AUTO; Value: 2; Range: 0-3; Units: /HPF; Status: F Test: RBC, URINE AUTO; Value: 26; Range: 0-3; Abnormal: Above high normal; Units: /HPF; Status: F Test: BACTERIA, URINE AUTO; Value: NEGATIVE; Range: NEGATIVE; Status: F Test: SQUAMOUS EPITHELIAL CELL UR AU; Value: 5; Range: 0-6; Units: /HPF; Status: F Test: MUCUS, URINE; Value: SMALL; Range: NEGATIVE; Status: F Test: HYALINE CAST, URINE AUTO; Value: 2; Range: 0-1; Units: /LPF; Status: F Lab Order: D-Dimer Quant; SPEC'M 04/28/16 12:03 Test: D-DIMER QUANT; Value: 1304.2; Range: <500; Abnormal: Above high normal; Units: ng/ml; Status: F Radiology Order: CT Chest Angio R/O PE Test: CT Chest Angio R/O PE REASON FOR EXAMINATION: hx PE;Shortness of Breath; Clinical: Acute chest pain and shortness of breath.; ; Technique: Axial contrast enhanced images from the thoracic inlet to the upper; abdomen using 100 ml Isovue 370 intravenous contrast material with coronal and; sagittal re-formations.; ; Findings: Satisfactory enhancement of the pulmonary vasculature is achieved and; no filling defects are identified to suggest pulmonary embolus. Thoracic aorta; is normal caliber without aneurysm or dissection. Heart and pericardium are; normal. Bilateral lung arriola demonstrate mild posterior dependent changes and; are otherwise clear without acute pulmonary parenchymal consolidation or; atelectasis. No nodule or mass lesion. No pleural effusion/reaction. No; pneumothorax. No adenopathy.; ; Impression:; No evidence for pulmonary embolus.; No acute pleuroparenchymal or mediastinal process.; ; ; Signed by; Jones Maynard MD 04/28/2016 03:31 P; Radiology Order: CT ABD & PELVIS: IV and Oral Contrast Test: CT ABD & PELVIS: IV and Oral Contrast REASON FOR EXAMINATION: low abd pain, recent surg, eval for abscess; Clinical: Lower abdominal pain.; ; Technique: Axial contrast enhanced images from the lung bases to the pubic; symphysis using oral and 100 ml Isovue 370 intravenous contrast material.; ; Comparison: 08/05/2015.; ; Findings:; Lung bases clear. Visualized heart and pericardium normal. Atherosclerotic; changes to the coronary arteries noted.; ; Liver, spleen, pancreas, gallbladder, bilateral adrenal glands and kidneys are; normal. The enteric system is without obstruction or acute inflammatory process.; Normal terminal ileum and appendix identified in the right lower quadrant.; Sigmoid diverticula noted without acute diverticulitis. Pelvis demonstrates; normal bladder and heterogeneous appearance to the bilateral ovaries which likely; represent physiologic change. The patient is status post hysterectomy. No; pelvic fluid or ascites. No mass or abscess/drainable collection. Vasculature; is normal and without aneurysm. No free air. No adenopathy. Skeletal; structures intact.; ; Impression:; No acute intra-abdominal or pelvic pathology appreciated.; Sigmoid diverticula without acute diverticulitis.; ; ; Signed by; Jones Maynard MD 04/28/2016 03:29 P; Outcome: 15:50 Discharge ordered by Provider. le 16:10 Discharge Assessment: Patient awake, alert and oriented x 3. No cognitive and/or ld5 functional deficits noted. Patient verbalized understanding of disposition instructions. patient administered narcotics - yes. Pt provided with safe discharge. The following High Risk Discharge criteria are identified: None. Discharged to home ambulatory, with family. Condition: stable. Discharge instructions given to patient, family, Instructed on discharge instructions, follow up and referral plans. medication usage, hydration Demonstrated understanding of instructions, medications, Pt was receptive of discharge instructions/ teaching. CT Study completed. Property :Personal belongings accompany Pt. 16:18 Patient left the ED. ld5 Signatures: Dispatcher [employer] EDDominick Kahn RN RN bcj Michelson, Staci, RN RN srm Ganter, LoriLee, Kyler Reg Cleo Llanos, DOG CONTROL OFFICER DOG CONTROL OFFICER Alex Hernandez, RN RN ml6 Shirin Flores RN RN ld5 Olivia Cota, WOODEN SHADE HARDWARE INSTALLER WOODEN SHADE HARDWARE INSTALLER ct3 Sudha Lawrence RN RN dsf Anderson, Jessica, RN RN ja5 Shirin Lancaster lr2 Corrections: (The following items were deleted from the chart) 14:43 12:35 NS 0.9% 1000 ml IV at 100 mL/hr in right antecubital [place] [id number] 14:59 14:49 BP 135 / 90 Auto; [place] [id number] 14:59 14:48 Pulse 74bpm; Monitor; Pulse Ox 98%; [place] [id number] 16:18 16:10 Discharge Assessment: Patient awake, alert and oriented x 3. No cognitive and/or ld5 functional deficits noted. Patient verbalized understanding of disposition instructions. patient administered narcotics - no ld5 MTDD
--- NOTE | 2016-04-28 16:19 | EDDOCDS ---
Physician Documentation [facility] Name: Marci Swanson Age: 40 yrs Sex: Female : 1975 Arrival Date: 04/28/2016 Time: 11:11 Bed 8 Private MD: Disposition: 04/28 15:54 Critical Care: Critical care not applicable. le Disposition: 04/28/16 15:50 Discharged to Home/Self Care. Impression: Abdominal and pelvic pain, Other chest pain, Dehydration - Mild. - Condition is Stable. - Discharge Instructions: Abdominal Pain, Adult, Nonspecific Chest Pain, Dehydration, Adult. - Medication Reconciliation, Local Pharmacy Hours form. - Follow up: Isac Lynn MD; When: Keep your scheduled appointment; Reason: Recheck today's complaints, Continuance of care. - Problem is new. - Symptoms have improved. - Notes: Increase your fluid intake. You will know you're well hydrated when your urine is clear or very light yellow Return to the ED for worsening pain, fever, drainage from wounds or any other concerns Historical: - Allergies: Ampicillin (Hives); Bactrim (Hives); Clear Adhesive Tape (Hives); Toradol (BELL); Tramadol HCl (Swelling); - Home Meds: 1. hydrocodone-acetaminophen 5-325 mg Oral tab 2 tabs every 6 hours (Last dose: 04/27/2016) 2. Lovenox 40 mg/0.4 mL Sub-Q syrg once daily (Last dose: 04/27/2016) - PMHx: Anxiety; Endometriosis; Pancreatitis; PE; Rheumatoid Arthritis; - PSHx: Ovarian Cystectomy- Left; Hysterectomy; R patella tendon; - Social history: Smoking status: Patient states was never smoker of tobacco. No barriers to communication noted, The patient speaks fluent Zimbabwean, Speaks appropriately for age. - Family history: Not pertinent. - : The pt / caregiver states he / she is on anticoagulants: Lovenox. Home medication list is obtained from the patient. - Exposure Risk Screening:: None identified. 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 9 in. (175.26 cm) (R); Pain 8/10; 11:45 BP 156 / 86 (auto/); ja5 11:46 Pulse 90 MON; Pulse Ox 97% ; ja5 12:38 Pulse 76 MON; Pulse Ox 99% ; ja5 12:39 BP 156 / 91 (auto/); ja5 13:08 Pulse 74 MON; Pulse Ox 95% ; ja5 13:09 BP 150 / 91 (auto/); ja5 13:38 Pulse 74 MON; Pulse Ox 98% ; ja5 13:39 BP 146 / 82 (auto/); ja5 13:40 Pain 8/10; ja5 14:08 Pulse 74 MON; Pulse Ox 98% ; ja5 14:09 BP 154 / 105 (auto/); ja5 14:52 Pain 7/10; ja5 14:58 BP 135 / 90; Pulse 74; Resp 16; Temp 97.1; Pulse Ox 98% on R/A; Pain 7/10; ja5 16:10 BP 146 / 80; Pulse 82 MON; Resp 16; Temp 97.2; Pulse Ox 97% ; ld5 11:15 Body Mass Index 31.01 (95.25 kg, 175.26 cm) lr2 MDM: 11:25 ECG WITH READING ER PHYS+CARDIAG ordered. EDMS 11:40 IV Saline Lock ordered. fg 11:40 Undress patient appropriately for examination ordered. fg 11:41 Basic Metabolic Profile Ordered. EDMS 11:41 CBC with Diff Ordered. EDMS 11:41 Lipase Ordered. EDMS 11:41 Liver Profile Ordered. EDMS 11:41 Urinalysis Ordered. EDMS 11:41 Urine Culture Ordered. EDMS 11:41 NOTHING BY MOUTH+DIET ordered. EDMS 12:18 Financial registration complete. lg 12:23 CBC with Diff Reviewed. le 12:27 NS 0.9% 1000 ml IV at bolus once ordered. le 12:27 NS 0.9% 1000 ml IV at 100 mL/hr continuous ordered. le 12:27 morphine 4 mg IVP every 15 minutes; Document pain score/vitals after each dose (Hold if le SBP < 90mmHg) x2 ordered. 12:27 Ondansetron 4 mg IVP once ordered. le 12:29 D-Dimer Quant Ordered. EDMS 12:36 [facility] [place] was scanned into [employer] and attached to record. lg 13:29 Basic Metabolic Profile Reviewed. le 13:29 Liver Profile Reviewed. le 13:29 Urinalysis Reviewed. le 13:29 D-Dimer Quant Reviewed. le 13:29 Lipase Reviewed. le 13:31 CT Chest Angio R/O PE Ordered. EDMS 13:32 CT ABD & PELVIS: IV and Oral Contrast Ordered. EDMS 13:43 Diatrizoate Meglumine & Sodium Liquid 10 ml PO once; mix in 290cc of water ordered. bcj 14:27 Diatrizoate Meglumine & Sodium Liquid 10 ml PO once; mix in 290cc of water ordered. bcj 14:43 NS 0.9% 1000 ml IV at 100 mL/hr continuous ordered. ja5 14:56 fentaNYL (PF) 50 mcg IVP once ordered. le 15:06 diphenhydrAMINE 50 mg PO once; with sip of water ordered. le Administered Medications: 12:35 Drug: NS 0.9% 1000 ml [sodium chloride 0.9 % intravenous solution] Route: IV; Rate: ja5 bolus; Site: right antecubital; 12:35 Drug: morphine 4 mg [morphine 4 mg/mL intravenous cartridge (1 mL)] Route: IVP; Site: ja5 right antecubital; 12:40 Drug: Ondansetron 4 mg [ondansetron HCl 2 mg/mL intravenous solution (2 mL)] Route: ja5 IVP; Site: right antecubital; 13:40 Drug: morphine 4 mg [morphine 4 mg/mL intravenous cartridge (1 mL)] Route: IVP; Site: ja5 right antecubital; 14:52 Follow up: Pain 09/17 Adult ja5 13:51 Drug: Diatrizoate Meglumine & Sodium 10 ml [diatrizoate meglumine and diat.sodium 66 bcj %-10 % oral solution (10 mL)] Route: PO; 14:28 Drug: Diatrizoate Meglumine & Sodium 10 ml [diatrizoate meglumine and diat.sodium 66 bcj %-10 % oral solution (10 mL)] Route: PO; 14:43 Drug: NS 0.9% 1000 ml [sodium chloride 0.9 % intravenous solution] Route: IV; Rate: 100 ja5 mL/hr; Site: right antecubital; 16:18 Follow up: IV Status: Completed infusion; IV Intake: 200ml ld5 15:27 Drug: diphenhydrAMINE 50 mg [diphenhydramine 25 mg capsule (2 caps)] Route: PO; ja5 15:29 Drug: fentaNYL (PF) 50 mcg [fentanyl (PF) 50 mcg/mL injection solution (1 mL)] Route: ja5 IVP; Site: right antecubital; 16:18 Follow up: Response: Confirmed pt not driving.; Pain is decreased ld5 Signatures: Dispatcher [employer] EDDomincik Kahn, RN RN Sheron Purcell, Reg Reg lg Cleo Che, DATA PROCESSING MECHANIC Shirin Gates RN RN ld5 Sudha LawrenceRN RN Mariposa Solo MD MD fg Anderson, JessicaRN RN [email or web address] The chart was reviewed and I authenticate all verbal orders and agree with the evaluation and treatment provided.Corrections: (The following items were deleted from the chart) 12:30 11:41 LAB URINE TEST+LAB ordered. EDMS EDMS Attachments: 12:36 [facility] [place] Agreement lg MTDD
--- NOTE | 2016-04-28 19:47 | ECGEPIP ---
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
--- NOTE | 2016-04-30 17:19 | EDDOCDS ---
Physician Documentation [facility] Name: Marci Swanson Age: 40 yrs Sex: Female : 1975 Arrival Date: 04/28/2016 Time: 11:11 Bed 8 Private MD: Disposition: 04/28 15:54 Critical Care: Critical care not applicable. le Disposition: 04/28/16 15:50 Discharged to Home/Self Care. Impression: Abdominal and pelvic pain, Other chest pain, Dehydration - Mild. - Condition is Stable. - Discharge Instructions: Abdominal Pain, Adult, Nonspecific Chest Pain, Dehydration, Adult. - Medication Reconciliation, Local Pharmacy Hours form. - Follow up: Isac Lynn MD; When: Keep your scheduled appointment; Reason: Recheck today's complaints, Continuance of care. - Problem is new. - Symptoms have improved. - Notes: Increase your fluid intake. You will know you're well hydrated when your urine is clear or very light yellow Return to the ED for worsening pain, fever, drainage from wounds or any other concerns Historical: - Allergies: Ampicillin (Hives); Bactrim (Hives); Clear Adhesive Tape (Hives); Toradol (BELL); Tramadol HCl (Swelling); - Home Meds: 1. hydrocodone-acetaminophen 5-325 mg Oral tab 2 tabs every 6 hours (Last dose: 04/27/2016) 2. Lovenox 40 mg/0.4 mL Sub-Q syrg once daily (Last dose: 04/27/2016) - PMHx: Anxiety; Endometriosis; Pancreatitis; PE; Rheumatoid Arthritis; - PSHx: Ovarian Cystectomy- Left; Hysterectomy; R patella tendon; - Social history: Smoking status: Patient states was never smoker of tobacco. No barriers to communication noted, The patient speaks fluent Liberian, Speaks appropriately for age. - Family history: Not pertinent. - : The pt / caregiver states he / she is on anticoagulants: Lovenox. Home medication list is obtained from the patient. - Exposure Risk Screening:: None identified. 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 9 in. (175.26 cm) (R); Pain 8/10; 11:45 BP 156 / 86 (auto/); ja5 11:46 Pulse 90 MON; Pulse Ox 97% ; ja5 12:38 Pulse 76 MON; Pulse Ox 99% ; ja5 12:39 BP 156 / 91 (auto/); ja5 13:08 Pulse 74 MON; Pulse Ox 95% ; ja5 13:09 BP 150 / 91 (auto/); ja5 13:38 Pulse 74 MON; Pulse Ox 98% ; ja5 13:39 BP 146 / 82 (auto/); ja5 13:40 Pain 8/10; ja5 14:08 Pulse 74 MON; Pulse Ox 98% ; ja5 14:09 BP 154 / 105 (auto/); ja5 14:52 Pain 7/10; ja5 14:58 BP 135 / 90; Pulse 74; Resp 16; Temp 97.1; Pulse Ox 98% on R/A; Pain 7/10; ja5 16:10 BP 146 / 80; Pulse 82 MON; Resp 16; Temp 97.2; Pulse Ox 97% ; ld5 11:15 Body Mass Index 31.01 (95.25 kg, 175.26 cm) lr2 MDM: 11:25 ECG WITH READING ER PHYS+CARDIAG ordered. EDMS 11:40 IV Saline Lock ordered. fg 11:40 Undress patient appropriately for examination ordered. fg 11:41 Basic Metabolic Profile Ordered. EDMS 11:41 CBC with Diff Ordered. EDMS 11:41 Lipase Ordered. EDMS 11:41 Liver Profile Ordered. EDMS 11:41 Urinalysis Ordered. EDMS 11:41 Urine Culture Ordered. EDMS 11:41 NOTHING BY MOUTH+DIET ordered. EDMS 12:18 Financial registration complete. lg 12:23 CBC with Diff Reviewed. le 12:27 NS 0.9% 1000 ml IV at bolus once ordered. le 12:27 NS 0.9% 1000 ml IV at 100 mL/hr continuous ordered. le 12:27 morphine 4 mg IVP every 15 minutes; Document pain score/vitals after each dose (Hold if le SBP < 90mmHg) x2 ordered. 12:27 Ondansetron 4 mg IVP once ordered. le 12:29 D-Dimer Quant Ordered. EDMS 12:36 [facility] [place] Agreement was scanned into [employer] and attached to record. lg 13:29 Basic Metabolic Profile Reviewed. le 13:29 Liver Profile Reviewed. le 13:29 Urinalysis Reviewed. le 13:29 D-Dimer Quant Reviewed. le 13:29 Lipase Reviewed. le 13:31 CT Chest Angio R/O PE Ordered. EDMS 13:32 CT ABD & PELVIS: IV and Oral Contrast Ordered. EDMS 13:43 Diatrizoate Meglumine & Sodium Liquid 10 ml PO once; mix in 290cc of water ordered. bcj 14:27 Diatrizoate Meglumine & Sodium Liquid 10 ml PO once; mix in 290cc of water ordered. bcj 14:43 NS 0.9% 1000 ml IV at 100 mL/hr continuous ordered. ja5 14:56 fentaNYL (PF) 50 mcg IVP once ordered. le 15:06 diphenhydrAMINE 50 mg PO once; with sip of water ordered. le 18:17 T-Sheet-- Draft Copy was scanned into [employer] and attached to record. klr 04/30 11:19 ECG/EKG was scanned into [employer] and attached to record. gb Administered Medications: 04/28 12:35 Drug: NS 0.9% 1000 ml [sodium chloride 0.9 % intravenous solution] Route: IV; Rate: ja5 bolus; Site: right antecubital; 12:35 Drug: morphine 4 mg [morphine 4 mg/mL intravenous cartridge (1 mL)] Route: IVP; Site: ja5 right antecubital; 12:40 Drug: Ondansetron 4 mg [ondansetron HCl 2 mg/mL intravenous solution (2 mL)] Route: ja5 IVP; Site: right antecubital; 13:40 Drug: morphine 4 mg [morphine 4 mg/mL intravenous cartridge (1 mL)] Route: IVP; Site: ja5 right antecubital; 14:52 Follow up: Pain 09/17 Adult ja5 13:51 Drug: Diatrizoate Meglumine & Sodium 10 ml [diatrizoate meglumine and diat.sodium 66 bcj %-10 % oral solution (10 mL)] Route: PO; 14:28 Drug: Diatrizoate Meglumine & Sodium 10 ml [diatrizoate meglumine and diat.sodium 66 bcj %-10 % oral solution (10 mL)] Route: PO; 14:43 Drug: NS 0.9% 1000 ml [sodium chloride 0.9 % intravenous solution] Route: IV; Rate: 100 ja5 mL/hr; Site: right antecubital; 16:18 Follow up: IV Status: Completed infusion; IV Intake: 200ml ld5 15:27 Drug: diphenhydrAMINE 50 mg [diphenhydramine 25 mg capsule (2 caps)] Route: PO; ja5 15:29 Drug: fentaNYL (PF) 50 mcg [fentanyl (PF) 50 mcg/mL injection solution (1 mL)] Route: ja5 IVP; Site: right antecubital; 16:18 Follow up: Response: Confirmed pt not driving.; Pain is decreased ld5 Signatures: Dispatcher [employer] EDDominick Kahn, RN RN Jyothi Hayden, Reg Reg gb Sheron See, Reg Reg lg Cleo Che, TICKET COUNTER Shirin Gates RN RN ld5 Sudha LawrenceRN Mariposa Cee MD MD fg Redder, Kathie klr Anderson, Jessica, RN RN ja5 The chart was reviewed and I authenticate all verbal orders and agree with the evaluation and treatment provided.Corrections: (The following items were deleted from the chart) 12:30 11:41 LAB URINE TEST+LAB ordered. CAMILAVA CAMILAVA Attachments: 12:36 [facility] Payment Agreement lg 18:17 T-Sheet-- Draft Copy r 04/30 11:19 ECG/EKG gb Chart Complete MTDD
--- NOTE | 2016-04-30 17:19 | EDDOCDS ---
Nurse's Notes [facility] Name: Pernell Alexandre Age: 40 yrs Sex: Female : 1975 Arrival Date: 04/28/2016 Time: 11:11 Bed 8 Private MD: Diagnosis: Abdominal and pelvic pain;Other chest pain;Dehydration-Mild Presentation: 04/28 11:18 Presenting complaint: Patient states: had left ovary removed last Saturday. Pt reports dsf abdominal pain, hives, itching and not feeling well. Risk factors: the patient reports no vaginal bleeding. Adult Sepsis Screening: The patient does not have new or worsening altered mentation. Patient's respiratory rate is less than 22. Systolic blood pressure is greater than 100. Patient has a qSOFA score of 0- Negative Sepsis Screen. Suicide/Homicide risk assessment- the patient denies having any suicidal and/or homicidal ideations and does not present with any other emotional, behavioral or mental health complaints. 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 Transition of care: patient was not received from another setting of care. 11:18 Acuity: ARVIN Level 3 dsf 11:18 Method Of Arrival: Walkin/Carried/Asstd dsf Triage Assessment: 11:20 General: Appears in no apparent distress, Behavior is appropriate for age, cooperative. dsf Pain: Location: left anterior chest wall Pain currently is 3 out of 10 on a pain scale. Pain does not radiate. Quality of pain is described as sharp, Pain began 4 days ago Is intermittent. Pain: Location: right lower quadrant and left lower quadrant Pain currently is 8 out of 10 on a pain scale. Quality of pain is described as crampy, sharp. HIV screening NA for this visit Offered previously. Respiratory: Reports shortness of breath at rest on exertion since 2 days ago. GI: Reports lower abdominal pain, Pain is 8 out of 10 on a pain scale. 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 hydrocodone-acetaminophen 5-325 mg Oral tab 2 tabs every 6 hours (Last dose: 04/27/2016) 2. Lovenox 40 mg/0.4 mL Sub-Q syrg once daily (Last dose: 04/27/2016) - PMHx: Anxiety; Endometriosis; Pancreatitis; PE; Rheumatoid Arthritis; - PSHx: Ovarian Cystectomy- Left; Hysterectomy; R patella tendon; - Social history: Smoking status: Patient states was never smoker of tobacco. No barriers to communication noted, The patient speaks fluent Luxembourgish, Speaks appropriately for age. - Family history: Not pertinent. - : The pt / caregiver states he / she is on anticoagulants: Lovenox. Home medication list is obtained from the patient. - Exposure Risk Screening:: None identified. Screenin:51 Screening information is obtained from the patient. Fall risk: No risks identified. ja5 Assistance ADL's: requires no assistance with activities of daily living. Abuse/DV Screen: The patient / caregiver reports he/she is: not in a situation that causes fear, pain or injury. Nutritional screening: On no prescribed diet. Advance Directives: Currently, there is a health care proxy, Monie Boyle, mother. home support is inadequate. Assessment: 11:47 General: Appears uncomfortable, Behavior is appropriate for age, cooperative. Pain: ja5 Location: right lower quadrant and left lower quadrant Pain currently is 8 out of 10 on a pain scale. Neurological: Level of Consciousness is awake, alert, Oriented to person, place, time. Cardiovascular: Capillary refill < 3 seconds Heart tones S1 S2 present. Respiratory: Airway is patent Respiratory effort is even, unlabored, Breath sounds are clear bilaterally. GI: Abdomen is obese, bruised on right lower quadrant and left lower quadrant at lap sites from surgery Bowel sounds present X 4 quads. Abd is tender to palpation in right lower quadrant and left lower quadrant. Derm: Skin is pink, warm & dry. 12:20 General: Patient is laying in stretcher with visitors at bedside. She is awake and ja5 alert with even unlabored respirations. SR on surveillance system monitor. Patient states that she has no needs at this time. . 13:37 General: Patient is laying in stretcher, states that she is still having pain to her ja5 abdomen. Her respirations are even and unlabored, SR on surveillance system monitor. Visitors at bedside, bed in low position, call light in reach, watching television.. 14:52 General: Patient in stretcher with visitors at bedside, NS IV fluids running, patient ja5 is awake and alert, SR on surveillance system monitor. Respirations are even and unlabored. Patient states the two doses of morphine "hardly touched my pain" and rates it at a 7/10 with sharp pains running up her vagina. Provider notified. . 16:13 General: Appears in no apparent distress, Behavior is cooperative, drowsy. General: ld5 First contact with pt. This RN in to discharge pt. Pt requesting pain medication to go home with. This was discussed with provider. Provider recommended tylenol and motrin and following up with Dr. Lynn on Saturday. Pain: Pain currently is 6 out of 10 on a pain scale. Neurological: Level of Consciousness is awake, obeys commands. Respiratory: Airway is patent Respiratory effort is even, unlabored. Vital Signs: 11:15 BP 196 / 110; Pulse 108; Resp 18; Temp 97.2(T); Pulse Ox 98% on R/A; Weight 95.25 kg lr2 (R); Height 5 ft. 9 in. (175.26 cm) (R); Pain 8/10; 11:45 BP 156 / 86 (auto/); ja5 11:46 Pulse 90 MON; Pulse Ox 97% ; ja5 12:38 Pulse 76 MON; Pulse Ox 99% ; ja5 12:39 BP 156 / 91 (auto/); ja5 13:08 Pulse 74 MON; Pulse Ox 95% ; ja5 13:09 BP 150 / 91 (auto/); ja5 13:38 Pulse 74 MON; Pulse Ox 98% ; ja5 13:39 BP 146 / 82 (auto/); ja5 13:40 Pain 8/10; ja5 14:08 Pulse 74 MON; Pulse Ox 98% ; ja5 14:09 BP 154 / 105 (auto/); ja5 14:52 Pain 7/10; ja5 14:58 BP 135 / 90; Pulse 74; Resp 16; Temp 97.1; Pulse Ox 98% on R/A; Pain 7/10; ja5 16:10 BP 146 / 80; Pulse 82 MON; Resp 16; Temp 97.2; Pulse Ox 97% ; ld5 11:15 Body Mass Index 31.01 (95.25 kg, 175.26 cm) lr2 Vitals: 11:15 Log In Time: April 28, 2016 at 11:11. lr2 ED Course: 11:13 Patient visited by Shirin Lancaster. lr2 11:13 Patient moved to Waiting lr2 11:14 Patient moved to Pre RCE lr2 11:19 Triage Initiated dsf 11:23 Patient moved to PR / srm 11:37 Patient visited by Olivia Cota PCA. ct3 11:37 Linette Mccabe,RN is Primary Nurse. srm 11:37 Patient moved to 8 srm 11:37 EKG done. (by ED staff). Reviewed by Mariposa Thompson MD. ct3 12:08 Basic Metabolic Profile Sent. ja5 12:08 CBC with Diff Sent. ja5 12:08 Lipase Sent. ja5 12:09 Cleo Che FNP is PHCP. le 12:09 Inserted saline lock: 20 gauge in right antecubital area. ja5 12:11 Patient visited by Linette Mccabe RN. ja5 12:13 Patient visited by Cleo Che FNP. le 12:17 Patient visited by Cleo Che FNP. le 12:19 Primary Nurse role handed off by Linette Mccabe,NICHOLE ml6 12:29 Linette Mccabe RN is Primary Nurse. ja5 12:35 Patient name changed from Pernell\\S\\Latarish\\S\\Sky\\S\\ to Pernell\\S\\ \\S\\Sky. EDMS 12:36 [facility] Payment Agreement was scanned into [employer] and attached to record. lg 12:44 Patient visited by Linette Mccabe RN. ja5 12:44 Urinalysis Sent. ja5 13:35 Patient visited by Linette Mccabe RN. ja5 13:50 Patient visited by Linette Mccabe RN. ja5 14:55 Patient visited by Linette Mccabe RN. ja5 15:22 Patient visited by Linette Mccabe RN. ja5 15:48 CT ABD & PELVIS: IV and Oral Contrast Returned. EDMS 15:48 CT Chest Angio R/O PE Returned. EDMS 15:50 Isac Lynn MD is Referral Physician. le 16:10 The patient / caregiver is instructed regarding the plan of care and ED course. ld5 Accompanied by Patient has correct armband on for positive identification. 16:10 Discontinued lock intact, bleeding controlled, pressure dressing applied, No ld5 redness/swelling at site. No procedures done that require assistance. 16:18 Patient visited by Shirin Flores RN. ld5 18:17 T-Sheet-- Draft Copy was scanned into [employer]Feed and attached to record. klr 20:06 EKG-ADULT Returned. EDMS 04/30 11:19 ECG/EKG was scanned into [employer] and attached to record. gb Administered Medications: 04/28 12:35 Drug: NS 0.9% 1000 ml [sodium chloride 0.9 % intravenous solution] Route: IV; Rate: ja5 bolus; Site: right antecubital; 12:35 Drug: morphine 4 mg [morphine 4 mg/mL intravenous cartridge (1 mL)] Route: IVP; Site: ja5 right antecubital; 12:40 Drug: Ondansetron 4 mg [ondansetron HCl 2 mg/mL intravenous solution (2 mL)] Route: ja5 IVP; Site: right antecubital; 13:40 Drug: morphine 4 mg [morphine 4 mg/mL intravenous cartridge (1 mL)] Route: IVP; Site: ja5 right antecubital; 14:52 Follow up: Pain 09/17 Adult ja5 13:51 Drug: Diatrizoate Meglumine & Sodium 10 ml [diatrizoate meglumine and diat.sodium 66 bcj %-10 % oral solution (10 mL)] Route: PO; 14:28 Drug: Diatrizoate Meglumine & Sodium 10 ml [diatrizoate meglumine and diat.sodium 66 bcj %-10 % oral solution (10 mL)] Route: PO; 14:43 Drug: NS 0.9% 1000 ml [sodium chloride 0.9 % intravenous solution] Route: IV; Rate: 100 ja5 mL/hr; Site: right antecubital; 16:18 Follow up: IV Status: Completed infusion; IV Intake: 200ml ld5 15:27 Drug: diphenhydrAMINE 50 mg [diphenhydramine 25 mg capsule (2 caps)] Route: PO; ja5 15:29 Drug: fentaNYL (PF) 50 mcg [fentanyl (PF) 50 mcg/mL injection solution (1 mL)] Route: ja5 IVP; Site: right antecubital; 16:18 Follow up: Response: Confirmed pt not driving.; Pain is decreased ld5 Intake: 16:18 IV: 200.00ml; Total: 200.00ml. ld5 Order Results: Lab Order: Basic Metabolic Profile; SPEC'04/28/16 12:03 Test: GLUCOSE, FASTING; Value: 106; Range: 70-105; Abnormal: Above high normal; Units: MG/DL; Status: F Test: BLOOD UREA NITROGEN; Value: 19; Range: 7-18; Abnormal: Above high normal; Units: MG/DL; Status: F Test: CREATININE FOR GFR; Value: 1.06; Range: 0.55-1.02; Abnormal: Above high normal; Units: MG/DL; Status: F Test: GLOMERULAR FILTRATION RATE; Value: > 60.0; Range: >58; Status: F Test: SODIUM LEVEL; Value: 141; Range: 136-145; Units: MEQ/L; Status: F Test: POTASSIUM SERUM; Value: 4.2; Range: 3.5-5.1; Units: MEQ/L; Status: F Test: CHLORIDE LEVEL; Value: 104; Range: 98-107; Units: MEQ/L; Status: F Test: CARBON DIOXIDE LEVEL; Value: 29; Range: 21-32; Units: MEQ/L; Status: F Test: ANION GAP; Value: 8; Range: 8-16; Units: MEQ/L; Status: F Test: CALCIUM LEVEL; Value: 8.8; Range: 8.5-10.1; Units: MG/DL; Status: F Test Note: ; Units are mL/min/1.73 m2 Chronic Kidney Disease Staging per NKF: Stage I & II GFR >=60 Normal to Mildly Decreased Stage III GFR 30-59 Moderately Decreased Stage IV GFR 15-29 Severely Decreased Stage V GFR <15 Very Little GFR Left ESRD GFR <15 on PRECISION MARKET INSIGHTS Lab Order: CBC with Diff; SPEC'04/28/16 12:03 Test: WHITE BLOOD COUNT; Value: 11.2; Range: 4.0-10.0; Abnormal: Above high normal; Units: K/mm3; Status: F Test: RED BLOOD COUNT; Value: 4.66; Range: 4.00-5.40; Units: M/mm3; Status: F Test: HEMOGLOBIN; Value: 12.3; Range: 12.0-16.0; Units: g/dl; Status: F Test: HEMATOCRIT; Value: 38.7; Range: 36.0-47.0; Units: %; Status: F Test: MEAN CORPUSCULAR VOLUME; Value: 83.0; Range: 80.0-96.0; Units: fl; Status: F Test: MEAN CORPUSCULAR HEMOGLOBIN; Value: 26.3; Range: 27.0-33.0; Abnormal: Below low normal; Units: pg; Status: F Test: MEAN CORPUSCULAR HGB CONC; Value: 31.7; Range: 32.0-36.5; Abnormal: Below low normal; Units: g/dl; Status: F Test: RED CELL DISTRIBUTION WIDTH; Value: 12.9; Range: 11.5-14.5; Units: %; Status: F Test: PLATELET COUNT, AUTOMATED; Value: 299; Range: 150-450; Units: k/mm3; Status: F Test: NEUTROPHILS %; Value: 73.6; Range: 36.0-66.0; Abnormal: Above high normal; Units: %; Status: F Test: LYMPH %; Value: 17.4; Range: 24.0-44.0; Abnormal: Below low normal; Units: %; Status: F Test: MONO %; Value: 4.8; Range: 0.0-5.0; Units: %; Status: F Test: EOS %; Value: 3.3; Range: 0.0-3.0; Abnormal: Above high normal; Units: %; Status: F Test: BASO %; Value: 0.2; Range: 0.0-1.0; Units: %; Status: F Test: LARGE UNSTAINED CELL %; Value: 0.8; Range: 0.0-4.0; Units: %; Status: F Test: NEUTROPHILS #; Value: 8.2; Range: 1.8-7.7; Abnormal: Above high normal; Units: K/mm3; Status: F Test: LYMPH #; Value: 2.0; Range: 1.5-4.5; Units: K/mm3; Status: F Test: MONO #; Value: 0.5; Range: 0.0-0.8; Units: K/mm3; Status: F Test: EOS #; Value: 0.4; Range: 0.0-0.50; Units: K/mm3; Status: F Test: BASO #; Value: 0.0; Range: 0.0-0.2; Units: K/mm3; Status: F Test: LARGE UNSTAINED CELL #; Value: 0.1; Range: 0.0-0.4; Units: K/mm3; Status: F Lab Order: Lipase; SPEC' 04/28/16 12:03 Test: LIPASE; Value: 139; Range: 73-393; Units: U/L; Status: F Lab Order: Liver Profile; SPEC'M 04/28/16 12:03 Test: AST/SGOT; Value: 30; Range: 15-37; Units: U/L; Status: F Test: ALT/SGPT; Value: 60; Range: 12-78; Units: U/L; Status: F Test: ALKALINE PHOSPHATASE; Value: 119; Range: 45-117; Abnormal: Above high normal; Units: U/L; Status: F Test: BILIRUBIN,TOTAL; Value: 0.5; Range: 0.2-1.0; Units: MG/DL; Status: F Test: BILIRUBIN,DIRECT; Value: 0.1; Range: 0.0-0.2; Units: MG/DL; Status: F Test: TOTAL PROTEIN; Value: 8.0; Range: 6.4-8.2; Units: GM/DL; Status: F Test: ALBUMIN; Value: 3.5; Range: 3.2-5.2; Units: GM/DL; Status: F Test: ALBUMIN/GLOBULIN RATIO; Value: 0.78; Range: 1.00-1.93; Abnormal: Below low normal; Status: F Lab Order: Urinalysis; SPEC'M 04/28/16 11:40 Test: APPEARANCE, URINE; Value: CLEAR; Range: CLEAR; Status: F Test: COLOR, URINE; Value: YELLOW; Range: YELLOW; Status: F Test: PH,URINE; Value: 6.0; Range: 5.0-9.0; Units: UNITS; Status: F Test: SPECIFIC GRAVITY URINE AUTO; Value: 1.025; Range: 1.002-1.035; Status: F Test: PROTEIN, URINE AUTO; Value: NEGATIVE; Range: NEGATIVE; Units: mg/dL; Status: F Test: GLUCOSE, URINE (UA) AUTO; Value: NEGATIVE; Range: NEGATIVE; Units: mg/dL; Status: F Test: KETONE, URINE AUTO; Value: NEGATIVE; Range: NEGATIVE; Units: mg/dL; Status: F Test: UROBILINOGEN, URINE AUTO; Value: 0.2; Range: 0.0-2.0; Units: mg/dL; Status: F Test: BILIRUBIN, URINE AUTO; Value: NEGATIVE; Range: NEGATIVE; Status: F Test: NITRITE, URINE AUTO; Value: NEGATIVE; Range: NEGATIVE; Status: F Test: LEUKOCYTE ESTERASE, URINE AUTO; Value: TRACE; Range: NEGATIVE; Abnormal: Above high normal; Status: F Test: BLOOD, URINE BLOOD; Value: 2+; Range: NEGATIVE; Abnormal: Above high normal; Status: F Test: WBC, URINE AUTO; Value: 2; Range: 0-3; Units: /HPF; Status: F Test: RBC, URINE AUTO; Value: 26; Range: 0-3; Abnormal: Above high normal; Units: /HPF; Status: F Test: BACTERIA, URINE AUTO; Value: NEGATIVE; Range: NEGATIVE; Status: F Test: SQUAMOUS EPITHELIAL CELL UR AU; Value: 5; Range: 0-6; Units: /HPF; Status: F Test: MUCUS, URINE; Value: SMALL; Range: NEGATIVE; Status: F Test: HYALINE CAST, URINE AUTO; Value: 2; Range: 0-1; Units: /LPF; Status: F Lab Order: Urine Culture; SPEC'M 04/28/16 12:03 Test: URINE CULTURE; Value: <EXTERNAL COMMENT eCWMed> FULL REPORT IN LAB NOTES (eCW and Medent).; Status: F Test: URINE CULTURE; Value: URINE CULTURE RESULT; Status: F Test: URINE CULTURE; Value: NO GROWTH CLINICAL SIGNIFICANCE 2 OR MORE ORGANISMS; Status: F Lab Order: D-Dimer Quant; SPEC'M 04/28/16 12:03 Test: D-DIMER QUANT; Value: 1304.2; Range: <500; Abnormal: Above high normal; Units: ng/ml; Status: F Radiology Order: EKG-ADULT Test: EKG-ADULT REASON FOR EXAMINATION: Chest Pain; Stationary ECG Study; [facility] - ED; ; Test Date: 2016-04-28; Pat Name: PERNELL ALEXANDRE Department:; Room: -; Gender: F 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; : 1975 Requested By: MARIPOSA Vaughan; Order Number: [id number] Reading MD: Tayler Salvador; Measurements; Intervals [place]; Rate: 89 P: 63; NV: 182 QRS: -1; QRSD: 92 T: 19; QT: 372; QTc: 453; Interpretive Statements; SINUS RHYTHM; POSSIBLE LEFT ATRIAL ENLARGEMENT; INCREASED RATE 04/14/16; Electronically Signed On 04-28-2016 19:47:08 EST by Tayler Salvador; Radiology Order: CT Chest Angio R/O PE Test: CT Chest Angio R/O PE REASON FOR EXAMINATION: hx PE;Shortness of Breath; Clinical: Acute chest pain and shortness of breath.; ; Technique: Axial contrast enhanced images from the thoracic inlet to the upper; abdomen using 100 ml Isovue 370 intravenous contrast material with coronal and; sagittal re-formations.; ; Findings: Satisfactory enhancement of the pulmonary vasculature is achieved and; no filling defects are identified to suggest pulmonary embolus. Thoracic aorta; is normal caliber without aneurysm or dissection. Heart and pericardium are; normal. Bilateral lung arriola demonstrate mild posterior dependent changes and; are otherwise clear without acute pulmonary parenchymal consolidation or; atelectasis. No nodule or mass lesion. No pleural effusion/reaction. No; pneumothorax. No adenopathy.; ; Impression:; No evidence for pulmonary embolus.; No acute pleuroparenchymal or mediastinal process.; ; ; Signed by; Jones Maynard MD 04/28/2016 03:31 P; Radiology Order: CT ABD & PELVIS: IV and Oral Contrast Test: CT ABD & PELVIS: IV and Oral Contrast REASON FOR EXAMINATION: low abd pain, recent surg, eval for abscess; Clinical: Lower abdominal pain.; ; Technique: Axial contrast enhanced images from the lung bases to the pubic; symphysis using oral and 100 ml Isovue 370 intravenous contrast material.; ; Comparison: 08/05/2015.; ; Findings:; Lung bases clear. Visualized heart and pericardium normal. Atherosclerotic; changes to the coronary arteries noted.; ; Liver, spleen, pancreas, gallbladder, bilateral adrenal glands and kidneys are; normal. The enteric system is without obstruction or acute inflammatory process.; Normal terminal ileum and appendix identified in the right lower quadrant.; Sigmoid diverticula noted without acute diverticulitis. Pelvis demonstrates; normal bladder and heterogeneous appearance to the bilateral ovaries which likely; represent physiologic change. The patient is status post hysterectomy. No; pelvic fluid or ascites. No mass or abscess/drainable collection. Vasculature; is normal and without aneurysm. No free air. No adenopathy. Skeletal; structures intact.; ; Impression:; No acute intra-abdominal or pelvic pathology appreciated.; Sigmoid diverticula without acute diverticulitis.; ; ; Signed by; Jones Maynard MD 04/28/2016 03:29 P; Outcome: 15:50 Discharge ordered by Provider. le 16:10 Discharge Assessment: Patient awake, alert and oriented x 3. No cognitive and/or ld5 functional deficits noted. Patient verbalized understanding of disposition instructions. patient administered narcotics - yes. Pt provided with safe discharge. The following High Risk Discharge criteria are identified: None. Discharged to home ambulatory, with family. Condition: stable. Discharge instructions given to patient, family, Instructed on discharge instructions, follow up and referral plans. medication usage, hydration Demonstrated understanding of instructions, medications, Pt was receptive of discharge instructions/ teaching. CT Study completed. Property :Personal belongings accompany Pt. 16:18 Patient left the ED. ld5 Signatures: Dispatcher [employer] EDMS Dominick Schwartz RN Charla Le RN NICHOLE [facility], Jyothi, Reg Reg gb Ganter, LoriLee, Reg Reg lg Yane, Cleo, TOLL TICKET CLERK TOLL TICKET CLERK Alex Hernandez RN NICHOLE ml6 Shirin FloresRN RN jackson5 Olivia Cota, INDUSTRY OPERATIONS INVESTIGATOR INDUSTRY OPERATIONS INVESTIGATOR ct3 Sudha Lawrence RN RN dsf Redder, Kathie klr Anderson, JessicaRN Shirin Beckford lr2 Corrections: (The following items were deleted from the chart) 14:43 12:35 NS 0.9% 1000 ml IV at 100 mL/hr in right antecubital ja5 ja5 14:59 14:49 BP 135 / 90 Auto; ja5 ja5 14:59 14:48 Pulse 74bpm; Monitor; Pulse Ox 98%; edel mancilla5 16:18 16:10 Discharge Assessment: Patient awake, alert and oriented x 3. No cognitive and/or ld5 functional deficits noted. Patient verbalized understanding of disposition instructions. patient administered narcotics - no ld5 Chart Complete MTDD
--- NOTE | 2016-04-30 17:19 | EDDOCDS ---
Physician Documentation [facility] Name: Marci Swanson Age: 40 yrs Sex: Female : 1975 Arrival Date: 04/28/2016 Time: 11:11 Bed 8 Private MD: Disposition: 04/28 15:54 Critical Care: Critical care not applicable. le Disposition: 04/28/16 15:50 Discharged to Home/Self Care. Impression: Abdominal and pelvic pain, Other chest pain, Dehydration - Mild. - Condition is Stable. - Discharge Instructions: Abdominal Pain, Adult, Nonspecific Chest Pain, Dehydration, Adult. - Medication Reconciliation, Local Pharmacy Hours form. - Follow up: Isac Lynn MD; When: Keep your scheduled appointment; Reason: Recheck today's complaints, Continuance of care. - Problem is new. - Symptoms have improved. - Notes: Increase your fluid intake. You will know you're well hydrated when your urine is clear or very light yellow Return to the ED for worsening pain, fever, drainage from wounds or any other concerns Historical: - Allergies: Ampicillin (Hives); Bactrim (Hives); Clear Adhesive Tape (Hives); Toradol (BELL); Tramadol HCl (Swelling); - Home Meds: 1. hydrocodone-acetaminophen 5-325 mg Oral tab 2 tabs every 6 hours (Last dose: 04/27/2016) 2. Lovenox 40 mg/0.4 mL Sub-Q syrg once daily (Last dose: 04/27/2016) - PMHx: Anxiety; Endometriosis; Pancreatitis; PE; Rheumatoid Arthritis; - PSHx: Ovarian Cystectomy- Left; Hysterectomy; R patella tendon; - Social history: Smoking status: Patient states was never smoker of tobacco. No barriers to communication noted, The patient speaks fluent [place] Island[place], Speaks appropriately for age. - Family history: Not pertinent. - : The pt / caregiver states he / she is on anticoagulants: Lovenox. Home medication list is obtained from the patient. - Exposure Risk Screening:: None identified. PROCUREMENT REPRESENTATIVE: 11:20 LMP N/A - Hysterectomy dsf Vital Signs: 11:15 BP 196 / 110; Pulse 108; Resp 18; Temp 97.2(T); Pulse Ox 98% on R/A; Weight 95.25 kg / lr2 209.99 lbs (R); Height 5 ft. 9 in. (175.26 cm) (R); Pain 8/10; 11:45 BP 156 / 86 (auto/); ja5 11:46 Pulse 90 MON; Pulse Ox 97% ; ja5 12:38 Pulse 76 MON; Pulse Ox 99% ; ja5 12:39 BP 156 / 91 (auto/); ja5 13:08 Pulse 74 MON; Pulse Ox 95% ; ja5 13:09 BP 150 / 91 (auto/); ja5 13:38 Pulse 74 MON; Pulse Ox 98% ; ja5 13:39 BP 146 / 82 (auto/); ja5 13:40 Pain 8/10; ja5 14:08 Pulse 74 MON; Pulse Ox 98% ; ja5 14:09 BP 154 / 105 (auto/); ja5 14:52 Pain 7/10; ja5 14:58 BP 135 / 90; Pulse 74; Resp 16; Temp 97.1; Pulse Ox 98% on R/A; Pain 7/10; ja5 16:10 BP 146 / 80; Pulse 82 MON; Resp 16; Temp 97.2; Pulse Ox 97% ; ld5 11:15 Body Mass Index 31.01 (95.25 kg, 175.26 cm) lr2 MDM: 11:25 ECG WITH READING ER PHYS+CARDIAG ordered. EDMS 11:40 IV Saline Lock ordered. fg 11:40 Undress patient appropriately for examination ordered. fg 11:41 Basic Metabolic Profile Ordered. EDMS 11:41 CBC with Diff Ordered. EDMS 11:41 Lipase Ordered. EDMS 11:41 Liver Profile Ordered. EDMS 11:41 Urinalysis Ordered. EDMS 11:41 Urine Culture Ordered. EDMS 11:41 NOTHING BY MOUTH+DIET ordered. EDMS 12:18 Financial registration complete. lg 12:23 CBC with Diff Reviewed. le 12:27 NS 0.9% 1000 ml IV at bolus once ordered. le 12:27 NS 0.9% 1000 ml IV at 100 mL/hr continuous ordered. le 12:27 morphine 4 mg IVP every 15 minutes; Document pain score/vitals after each dose (Hold if le SBP < 90mmHg) x2 ordered. 12:27 Ondansetron 4 mg IVP once ordered. le 12:29 D-Dimer Quant Ordered. EDMS 12:36 [facility] [place] Agreement was scanned into [employer] and attached to record. lg 13:29 Basic Metabolic Profile Reviewed. le 13:29 Liver Profile Reviewed. le 13:29 Urinalysis Reviewed. le 13:29 D-Dimer Quant Reviewed. le 13:29 Lipase Reviewed. le 13:31 CT Chest Angio R/O PE Ordered. EDMS 13:32 CT ABD & PELVIS: IV and Oral Contrast Ordered. EDMS 13:43 Diatrizoate Meglumine & Sodium Liquid 10 ml PO once; mix in 290cc of water ordered. bcj 14:27 Diatrizoate Meglumine & Sodium Liquid 10 ml PO once; mix in 290cc of water ordered. bcj 14:43 NS 0.9% 1000 ml IV at 100 mL/hr continuous ordered. ja5 14:56 fentaNYL (PF) 50 mcg IVP once ordered. le 15:06 diphenhydrAMINE 50 mg PO once; with sip of water ordered. le 18:17 T-Sheet-- Draft Copy was scanned into [employer] and attached to record. klr 04/30 11:19 ECG/EKG was scanned into [employer] and attached to record. gb Administered Medications: 04/28 12:35 Drug: NS 0.9% 1000 ml [sodium chloride 0.9 % intravenous solution] Route: IV; Rate: ja5 bolus; Site: right antecubital; 12:35 Drug: morphine 4 mg [morphine 4 mg/mL intravenous cartridge (1 mL)] Route: IVP; Site: ja5 right antecubital; 12:40 Drug: Ondansetron 4 mg [ondansetron HCl 2 mg/mL intravenous solution (2 mL)] Route: ja5 IVP; Site: right antecubital; 13:40 Drug: morphine 4 mg [morphine 4 mg/mL intravenous cartridge (1 mL)] Route: IVP; Site: ja5 right antecubital; 14:52 Follow up: Pain 09/17 Adult ja5 13:51 Drug: Diatrizoate Meglumine & Sodium 10 ml [diatrizoate meglumine and diat.sodium 66 bcj %-10 % oral solution (10 mL)] Route: PO; 14:28 Drug: Diatrizoate Meglumine & Sodium 10 ml [diatrizoate meglumine and diat.sodium 66 bcj %-10 % oral solution (10 mL)] Route: PO; 14:43 Drug: NS 0.9% 1000 ml [sodium chloride 0.9 % intravenous solution] Route: IV; Rate: 100 ja5 mL/hr; Site: right antecubital; 16:18 Follow up: IV Status: Completed infusion; IV Intake: 200ml ld5 15:27 Drug: diphenhydrAMINE 50 mg [diphenhydramine 25 mg capsule (2 caps)] Route: PO; ja5 15:29 Drug: fentaNYL (PF) 50 mcg [fentanyl (PF) 50 mcg/mL injection solution (1 mL)] Route: ja5 IVP; Site: right antecubital; 16:18 Follow up: Response: Confirmed pt not driving.; Pain is decreased ld5 Signatures: Dispatcher [employer] EDDominick Kahn, RN RN Jyothi Hayden, Reg Reg gb Sheron See, Reg Reg lg Cleo Che, ESOL INSTRUCTOR Shirin Gates RN RN ld5 Sudha LawrenceRN Mariposa Cee MD MD fg Redder, Kathie klr Anderson, Jessica, RN RN ja5 The chart was reviewed and I authenticate all verbal orders and agree with the evaluation and treatment provided.Corrections: (The following items were deleted from the chart) 12:30 11:41 LAB URINE TEST+LAB ordered. CAMILAMT CAMILAMT Attachments: 12:36 [facility] Payment Agreement lg 18:17 T-Sheet-- Draft Copy r 04/30 11:19 ECG/EKG gb Chart Complete MTDD
== END 2016-04-28 16:18 | disposition home or self-care (01) ==
LOC: M ED 11:11
DX: R10.30 Lower abdominal pain, unspecified (principal); Z98.890 Other specified postprocedural states; F41.9 Anxiety disorder, unspecified; N80.9 Endometriosis, unspecified; M06.9 Rheumatoid arthritis, unspecified; Z87.19 Personal history of other diseases of the digestive system; Z86.711 Personal history of pulmonary embolism; Z79.899 Other long term (current) drug therapy; Z88.0 Allergy status to penicillin; Z88.1 Allergy status to other antibiotic agents; Z88.5 Allergy status to narcotic agent; Z88.8 Allergy status to other drugs, medicaments and biological substances; Z91.048 Other nonmedicinal substance allergy status
CPT/HCPCS: 71275; 74177; 80048; 80076; 81001; 83690; 85025; 85379; 87086; 93005; 96361; 96374; 96375; 96376; 99284; J2405; J3010; Q9963; Q9967

== ENCOUNTER 2016-05-20 23:49 | Emergency (ER) | payer MEDICARE, MEDICAID ==
[~2016-05-20] VITALS: Ht 175.3 cm; Wt 97.5 kg
[2016-05-21] MEDS ORDERED: ONDA4TAB6 PO (00:01)
[2016-05-21] MEDS ORDERED: NS 1,000 ML IV ONE (03:30)
[2016-05-21] MEDS ORDERED: METOCLOPRAMIDE INJ 10MG/2ML VIAL (J2765) IV ONE (03:30)
[2016-05-21] MEDS ORDERED: ISOVUE-370 76% 100ML VIAL (Q9967) As Ordered ONE ×2 (03:50→05:40)
[2016-05-21] MEDS: MORPHINE 4 MG/ML 1ML SYRINGE IV PRN ×2 (04:00→04:26)
[2016-05-21 04:05] LABS: BASO % 0.2 % (0.0-1.0); EOS # 0.1 K/mm3 (0.0-0.50); EOS % 1.1 % (0.0-3.0); LARGE UNSTAINED CELL # 0.1 K/mm3 (0.0-0.4); LARGE UNSTAINED CELL % 1.2 % (0.0-4.0); LYMPH # 2.1 K/mm3 (1.5-4.5); LYMPH % 20.5 % (24.0-44.0); MEAN CORPUSCULAR HEMOGLOBIN 26.8 pg (27.0-33.0); MEAN CORPUSCULAR HGB CONC 33.1 g/dl (32.0-36.5); MEAN CORPUSCULAR VOLUME 80.9 fl (80.0-96.0); MONO # 0.5 K/mm3 (0.0-0.8); NEUTROPHILS # 7.5 K/mm3 (1.8-7.7); NEUTROPHILS % 72.1 % (36.0-66.0); PLATELET COUNT, AUTOMATED 262 k/mm3 (150-450); RED CELL DISTRIBUTION WIDTH 12.8 % (11.5-14.5); WHITE BLOOD COUNT 10.4 K/mm3 (4.0-10.0)
[2016-05-21 05:16] LABS: ALBUMIN 3.4 GM/DL (3.2-5.2); ALBUMIN/GLOBULIN RATIO 0.92 (1.00-1.93); ALKALINE PHOSPHATASE 91 U/L (45-117); ALT/SGPT 20 U/L (12-78); ANION GAP 10 MEQ/L (8-16); AST/SGOT 18 U/L (15-37); BILIRUBIN,DIRECT 0.2 MG/DL (0.0-0.2); BILIRUBIN,TOTAL 0.7 MG/DL (0.2-1.0); BLOOD UREA NITROGEN 17 MG/DL (7-18); CARBON DIOXIDE LEVEL 25 MEQ/L (21-32); CHLORIDE LEVEL 107 MEQ/L (98-107); CREATININE FOR GFR 1.14 MG/DL (0.55-1.02); GLOMERULAR FILTRATION RATE > 60.0 (>58); GLUCOSE, FASTING 90 MG/DL (70-105); POTASSIUM SERUM 3.8 MEQ/L (3.5-5.1); SODIUM LEVEL 142 MEQ/L (136-145); TOTAL PROTEIN 7.1 GM/DL (6.4-8.2)
--- NOTE | 2016-05-21 06:30 | REPUSA ---
CLINICAL HISTORY: Abdominal pain. TECHNIQUE: Multiple axial, sagittal and coronal CT images were obtained through the abdomen and pelvi s after administration of intravenous contrast material. COMMENTS: Left ovarian cysts measuring 5.2 and 3.4 cm. The liver is mildly enlarged without mass or defect. There is no intra or extrahepatic biliary ductal dilatation. The spleen is normal. The gallbladder is within normal limits. The pancreas is of normal contour and attenuation characteristics. There is no evidence of adrenal mass. Both kidneys demonstrate prompt and equal nephrograms. The kidneys are normal in size, shape and conf iguration. There is no evidence of renal or ureteral mass. No renal or ureteral calculi are identifie d. There is no hydroureter or hydronephrosis. No evidence for appendicitis. There is no bowel wall thickening. No evidence for small or large angelito l obstruction. There is no evidence of abdominal ascites or lymphadenopathy. There is no evidence of intrinsic or extrinsic bladder mass. There is no pelvic ascites or lymphadeno [place]. Images of the lung bases show no evidence of pleural or parenchymal mass. There are no pleural effusi ons. The bony structures are free of lytic or blastic lesions. Multilevel degenerative changes are seen in volving the thoracolumbar spine. Fat containing umbilical hernia without incarceration. IMPRESSION: Left ovarian cysts. Fat containing umbilical hernia without incarceration. Mild hepatomegaly. Thank you for your kind referral of this patient.
[2016-05-21] MEDS ORDERED: PERC5TAB6 PO (06:50)
[2016-05-21] MEDS ORDERED: OXYCODONE PO ONE (07:00)
[2016-05-21] MEDS ORDERED: APAP PO ONE (07:00)
[2016-05-21 07:36] VITALS: BP 146/88
== END 2016-05-21 07:37 | disposition home or self-care (01) ==
LOC: M ED 05-21 01:55
DX: N83.202 Unspecified ovarian cyst, left side (principal); Z86.711 Personal history of pulmonary embolism; Z79.899 Other long term (current) drug therapy; Z88.1 Allergy status to other antibiotic agents; Z88.2 Allergy status to sulfonamides; Z88.5 Allergy status to narcotic agent; Z88.8 Allergy status to other drugs, medicaments and biological substances; L23.1 Allergic contact dermatitis due to adhesives
CPT/HCPCS: 36415; 74177; 80048; 80076; 81001; 83690; 85025; 86850; 86900; 86901; 87086; 93041; 96374; 96375; 99284; J2765; Q9967

== ENCOUNTER 2016-06-17 11:47 | Emergency (ER) | payer MEDICARE, MEDICAID ==
[~2016-06-17] VITALS: Ht 175.3 cm; Wt 104.3 kg
[~2016-06-17 11:47] MED LIST changes: -COLA100C PO; +COLA100C3 PO; +ONDA4TAB6 PO; +PERC5TAB6 PO
[2016-06-17] MEDS ORDERED: MORPHINE 4 MG/ML 1ML SYRINGE IV ONE (13:30)
[2016-06-17 13:45] LABS: BASO % 0.3 % (0.0-1.0); EOS # 0.4 K/mm3 (0.0-0.50); EOS % 4.9 % (0.0-3.0); LARGE UNSTAINED CELL # 0.1 K/mm3 (0.0-0.4); LARGE UNSTAINED CELL % 1.6 % (0.0-4.0); LYMPH # 2.6 K/mm3 (1.5-4.5); LYMPH % 27.6 % (24.0-44.0); MEAN CORPUSCULAR HGB CONC 31.3 g/dl (32.0-36.5); MEAN CORPUSCULAR VOLUME 83.1 fl (80.0-96.0); MONO # 0.4 K/mm3 (0.0-0.8); NEUTROPHILS # 5.4 K/mm3 (1.8-7.7); NEUTROPHILS % 60.6 % (36.0-66.0); PLATELET COUNT, AUTOMATED 304 k/mm3 (150-450); RED CELL DISTRIBUTION WIDTH 13.3 % (11.5-14.5); WHITE BLOOD COUNT 8.9 K/mm3 (4.0-10.0)
[2016-06-17 14:12] LABS: ANION GAP 5 MEQ/L (8-16); BLOOD UREA NITROGEN 13 MG/DL (7-18); CALCIUM LEVEL 8.9 MG/DL (8.5-10.1); CARBON DIOXIDE LEVEL 29 MEQ/L (21-32); CHLORIDE LEVEL 103 MEQ/L (98-107); CREATININE FOR GFR 1.06 MG/DL (0.55-1.02); GLOMERULAR FILTRATION RATE > 60.0 (>58); GLUCOSE, FASTING 83 MG/DL (70-105); HCG, SERUM QUANTITATIVE < 1.0 MIU/ML; POTASSIUM SERUM 3.7 MEQ/L (3.5-5.1); SODIUM LEVEL 137 MEQ/L (136-145)
[2016-06-17 14:41] VITALS: BP 146/76
--- NOTE | 2016-06-17 14:47 | REP ---
PELVIC AND ENDOVAGINAL PROBE ULTRASOUND: 06/17/2016. Clinical history: Hysterectomy in 2015. Recent left ovarian cystectomy. Left lower quadrant pain. Comparison: CT abdomen and pelvis 04/28/2016, ultrasound 03/28/2016. Findings: The bladder measured 5.8 x 5.3 x 4 cm. Uterus is absent. Vaginal cuff appears intact. Right ovary is 3.2 x 2 x 3.4 cm. There is a 1.7 x 1.6 x 1.5 cm dominant follicle on the right side. Doppler tracing shows resistive index 0.48. Some internal echoes for the dominant follicle on the right suggesting hemorrhagic follicle. No blood flow within it. Left ovary is enlarged at 7.1 x 6 x 6 cm with resistive index of 0.64. There is a cyst associated with it at 6.8 x 5.7 x 4.8 cm. I do not see free fluid. There is abundant gas adjacent to both adnexa. Impression: 1. Large cyst in the left adnexa 6.8 x 5.7 x 4.8 cm with blood flow into the left ovary, no torsion. 2. No evidence of free fluid. Uterus surgically absent. Vaginal cuff intact. 3. The right ovary has a hemorrhagic follicle 1.7 x 1.6 x 1.5 cm. No free fluid. Signed by Amandeep West MD 06/17/2016 07:34 P
[2016-06-17] MEDS ORDERED: PERC5TAB6 PO (15:29)
[2016-06-17] MEDS ORDERED: HYDROmorphone HCL 1 MG/ML SYRINGE (J1170) IV ONE ×2 (15:30)
[2016-06-17] MEDS ORDERED: OXYCODONE/APAP 5MG/325MG(BULK FOR ED) 1 TABLET PO ONE (17:30)
== END 2016-06-17 17:57 | disposition home or self-care (01) ==
LOC: M ED 13:09
DX: N83.202 Unspecified ovarian cyst, left side (principal); R10.32 Left lower quadrant pain; N80.9 Endometriosis, unspecified; D25.9 Leiomyoma of uterus, unspecified; G43.909 Migraine, unspecified, not intractable, without status migrainosus; J45.909 Unspecified asthma, uncomplicated; Z86.711 Personal history of pulmonary embolism; M54.9 Dorsalgia, unspecified; F41.9 Anxiety disorder, unspecified; Z88.0 Allergy status to penicillin; Z88.8 Allergy status to other drugs, medicaments and biological substances; Z88.2 Allergy status to sulfonamides; Z79.899 Other long term (current) drug therapy
CPT/HCPCS: 36415; 76830; 76856; 80048; 81001; 84702; 85025; 86140; 93976; 96374; 96375; 99283; J1170

== ENCOUNTER 2016-06-20 10:57 | Emergency (ER) | payer MEDICARE, MEDICAID ==
[~2016-06-20 10:57] MED LIST changes: -AZEL0.05 OP; -PYRI200T5 PO; -XYZA5TAB2 PO
[2016-06-20] MEDS ORDERED: XYZA5TAB2 PO (11:05)
[2016-06-20] MEDS ORDERED: AZEL0.05 OP (11:05)
[2016-06-20] MEDS ORDERED: methylPREDNISolone INJ 125 MG/2 ML VIAL (J2930) IM ONE (12:00)
[2016-06-20] MEDS ORDERED: HYDROmorphone HCL 1 MG/ML SYRINGE (J1170) IM ONE (12:00)
[2016-06-20] MEDS ORDERED: HYDR-3713 PO (12:08)
[2016-06-20] MEDS ORDERED: PYRI200T5 PO (12:28)
[2016-06-20 12:49] VITALS: BP 159/97
== END 2016-06-20 12:34 | disposition home or self-care (01) ==
LOC: M ED 12:13
DX: G89.29 Other chronic pain (principal); R10.2 Pelvic and perineal pain; L50.9 Urticaria, unspecified; N83.201 Unspecified ovarian cyst, right side; N83.202 Unspecified ovarian cyst, left side; Z86.718 Personal history of other venous thrombosis and embolism; Z79.899 Other long term (current) drug therapy; Z88.0 Allergy status to penicillin; Z88.8 Allergy status to other drugs, medicaments and biological substances; Z88.2 Allergy status to sulfonamides; Z88.5 Allergy status to narcotic agent; Z91.89 Other specified personal risk factors, not elsewhere classified; Z88.6 Allergy status to analgesic agent
CPT/HCPCS: 76830; 76856; 93976; 96372; 99282; J1170; J2930

== ENCOUNTER → 2016-06-20 | Outpatient (CLI) | payer MEDICARE, MEDICAID ==
[~2016-06-20] MED LIST changes: +AZEL0.05 OP; +PYRI200T5 PO; +XYZA5TAB2 PO
--- NOTE | 2016-06-20 13:35 | REP ---
PELVIC ULTRASOUND: Real-time sonographic evaluation of the pelvis is performed utilizing transabdominal and endovaginal technique and compared to a prior study of 06/17/2016. The bladder measures 2.7 x 5.0 x 2.2 cm. The patient has had a prior hysterectomy. Right ovary measures 4.8 x 2.1 x 2.5 cm and contains a complex cystic structure once again, essentially unchanged, measuring 2.3 x 1.8 x 1.8 cm. The left ovary is enlarged 7.3 x 4.7 x 6.1 cm and contains a septated cyst 6.7 x 4.9 x 5.4 cm. Configuration of a portion of the cyst suggests this may be associated with a hydrosalpinx. There is no ovarian torsion with blood flow seen in each ovary with duplex Doppler evaluation, RI right ovary 0.58 and the left ovary 0.53. IMPRESSION: Stable exam. Complex cyst right ovary is unchanged as is the septated cyst left ovary. Configuration on the left suggests this may be a hydrosalpinx as well. There is no evidence of ovarian torsion. Signed by John Baig MD 06/20/2016 02:28 P
== END ==
LOC: M RAD 10:01
PROVIDERS: ATTEND Specialist
DX: N83.201 Unspecified ovarian cyst, right side (principal); N83.202 Unspecified ovarian cyst, left side

== ENCOUNTER → 2016-07-02 | Outpatient (CLI) | payer MEDICARE, MEDICAID ==
[~2016-07-02] MED LIST changes: +AZEL0.05 OP; +ELIQ5TAB PO; +PYRI200T5 PO; +REGL10TA6 PO; +XYZA5TAB2 PO
--- NOTE | 2016-07-02 11:41 | REP ---
Chest two views HISTORY: Cough Comparison: 07/09/2015 The lungs are clear. The heart is normal in size. The pulmonary vasculature is normal in appearance. The bony structure is intact. IMPRESSION: No acute disease. Signed by Isac Dyer MD 07/02/2016 11:33 A
== END ==
LOC: M LRY 10:55
PROVIDERS: ATTEND Physician Assistant
DX: R50.9 Fever, unspecified (principal); R05 Cough; J02.0 Streptococcal pharyngitis
CPT/HCPCS: 71020; 87880; G0463

== ENCOUNTER 2016-07-11 19:45 | Emergency (ER) | payer MEDICARE, MEDICAID ==
[~2016-07-11] VITALS: Ht 175.3 cm; Wt 99.8 kg
[~2016-07-11 19:45] MED LIST changes: -ELIQ5TAB PO; -REGL10TA6 PO
[2016-07-11] MEDS ORDERED: REGL10TA6 PO (19:57)
[2016-07-11] MEDS ORDERED: ELIQ5TAB PO (19:57)
[2016-07-11] MEDS ORDERED: HYDROmorphone HCL 1 MG/ML SYRINGE (J1170) IM ONE (20:15)
[2016-07-11] MEDS ORDERED: HYDR-3713 PO (20:36)
[2016-07-11 20:47] VITALS: BP 168/98
== END 2016-07-11 21:05 | disposition home or self-care (01) ==
LOC: M ED 21:01
DX: R10.2 Pelvic and perineal pain (principal); Z79.01 Long term (current) use of anticoagulants; R51 Headache; N80.9 Endometriosis, unspecified; Z88.0 Allergy status to penicillin; Z88.2 Allergy status to sulfonamides; Z88.8 Allergy status to other drugs, medicaments and biological substances; Z79.899 Other long term (current) drug therapy; J45.909 Unspecified asthma, uncomplicated; I10 Essential (primary) hypertension; D25.9 Leiomyoma of uterus, unspecified
CPT/HCPCS: 96372; 99282; J1170

== ENCOUNTER 2016-11-29 08:34 | Emergency (ER) | payer MEDICARE, MEDICAID ==
[~2016-11-29] VITALS: Ht 175.3 cm; Wt 100.0 kg
[~2016-11-29 08:34] MED LIST changes: +ASTE0.15; +CIPR-249 PO; -CIPR500T89 PO; -COLA100C3 PO; +COLA100C5 PO; +ELIQ5TAB PO; +PERC5TAB12 PO; -PERC5TAB6 PO; +PYRI1TAB5 PO; -PYRI200T5 PO; +REGL10TA6 PO
[2016-11-29] MEDS ORDERED: VYVA20CA PO (08:50)
[2016-11-29] MEDS ORDERED: HYDR200T3 PO (08:50)
[2016-11-29] MEDS ORDERED: PRED10TA2 PO (08:50)
[2016-11-29] MEDS ORDERED: NS 1,000 ML IV ONE (09:30)
[2016-11-29] MEDS ORDERED: ONDANSETRON 4MG/2ML VIAL (J2405) IV ONE (09:30)
[2016-11-29] MEDS ORDERED: MORPHINE 4 MG/ML 1ML SYRINGE IV ONE ×2 (09:30→15:15)
[2016-11-29 11:14] LABS: BASO % 0.3 % (0.0-1.0); EOS # 0.2 K/mm3 (0.0-0.50); EOS % 2.7 % (0.0-3.0); LARGE UNSTAINED CELL # 0.2 K/mm3 (0.0-0.4); LARGE UNSTAINED CELL % 2.7 % (0.0-4.0); LYMPH # 1.7 K/mm3 (1.5-4.5); LYMPH % 25.2 % (24.0-44.0); MEAN CORPUSCULAR HEMOGLOBIN 26.8 pg (27.0-33.0); MEAN CORPUSCULAR HGB CONC 32.8 g/dl (32.0-36.5); MEAN CORPUSCULAR VOLUME 81.7 fl (80.0-96.0); MONO # 0.4 K/mm3 (0.0-0.8); MONO % 5.5 % (0.0-5.0); NEUTROPHILS # 4.2 K/mm3 (1.8-7.7); NEUTROPHILS % 63.7 % (36.0-66.0); PLATELET COUNT, AUTOMATED 250 k/mm3 (150-450); RED CELL DISTRIBUTION WIDTH 12.8 % (11.5-14.5); WHITE BLOOD COUNT 6.6 K/mm3 (4.0-10.0)
[2016-11-29 11:37] LABS: VITAMIN B12 LEVEL 1435 PG/ML (247-911)
[2016-11-29 11:56] LABS: ALBUMIN 3.6 GM/DL (3.2-5.2); ALBUMIN/GLOBULIN RATIO 0.82 (1.00-1.93); ALKALINE PHOSPHATASE 107 U/L (45-117); ALT/SGPT 29 U/L (12-78); ANION GAP 6 MEQ/L (8-16); AST/SGOT 18 U/L (15-37); BILIRUBIN,DIRECT 0.1 MG/DL (0.0-0.2); BILIRUBIN,TOTAL 0.5 MG/DL (0.2-1.0); BLOOD UREA NITROGEN 10 MG/DL (7-18); CALCIUM LEVEL 9.3 MG/DL (8.5-10.1); CARBON DIOXIDE LEVEL 28 MEQ/L (21-32); CHLORIDE LEVEL 105 MEQ/L (98-107); CREATININE FOR GFR 0.97 MG/DL (0.55-1.02); GLOMERULAR FILTRATION RATE > 60.0 (>58); GLUCOSE, FASTING 87 MG/DL (70-105); MAGNESIUM LEVEL 2.2 MG/DL (1.8-2.4); POTASSIUM SERUM 3.8 MEQ/L (3.5-5.1); SODIUM LEVEL 139 MEQ/L (136-145)
[2016-11-29] MEDS ORDERED: LORazepam 2 MG/ML VIAL (J2060) IV ONE (12:15)
[2016-11-29] MEDS ORDERED: LISI10TA4 PO (17:58)
[2016-11-29 18:14] LABS: COMPLEMENT C3 152 MG/DL (90-180); COMPLEMENT C4 43.6 MG/DL (10-40)
[2016-11-29] MEDS ORDERED: PERC5TAB12 PO (18:23)
[2016-11-29] MEDS ORDERED: ZOFR4TAB3 PO (18:25)
[2016-11-29 18:38] VITALS: BP 180/100
== END 2016-11-29 19:07 | disposition home or self-care (01) ==
LOC: M ED 08:34
DX: I10 Essential (primary) hypertension (principal); M32.9 Systemic lupus erythematosus, unspecified; J45.909 Unspecified asthma, uncomplicated; G43.909 Migraine, unspecified, not intractable, without status migrainosus; F41.9 Anxiety disorder, unspecified; Z87.440 Personal history of urinary (tract) infections; Z95.828 Presence of other vascular implants and grafts; Z79.01 Long term (current) use of anticoagulants; Z79.899 Other long term (current) drug therapy; Z88.2 Allergy status to sulfonamides; Z88.5 Allergy status to narcotic agent; Z88.8 Allergy status to other drugs, medicaments and biological substances; Z88.0 Allergy status to penicillin
CPT/HCPCS: 36415; 80048; 80076; 81001; 82607; 83735; 84207; 85025; 85652; 86140; 86160; 96374; 96375; 96376; 99285; J2060; J2405

== ENCOUNTER 2017-01-20 15:47 | Emergency (ER) | payer MEDICARE, MEDICAID ==
[~2017-01-20] VITALS: Ht 175.3 cm; Wt 111.4 kg
[~2017-01-20 15:47] MED LIST changes: +HYDR200T3 PO; +LISI10TA4 PO; +PRED10TA2 PO; +VYVA20CA PO; +ZOFR4TAB3 PO
[2017-01-20] MEDS ORDERED: LEUP375KIT (16:18)
[2017-01-20] MEDS ORDERED: plaquinel PO (16:18)
[2017-01-20] MEDS ORDERED: HYDR-3363 PO (17:01)
[2017-01-20 17:20] VITALS: BP 134/89
== END 2017-01-20 17:22 | disposition home or self-care (01) ==
LOC: M ED 15:47
DX: F41.9 Anxiety disorder, unspecified (principal); F32.9 Major depressive disorder, single episode, unspecified; I51.9 Heart disease, unspecified; F99 Mental disorder, not otherwise specified; Z86.711 Personal history of pulmonary embolism; Z79.01 Long term (current) use of anticoagulants; Z79.899 Other long term (current) drug therapy; Z88.0 Allergy status to penicillin; Z88.2 Allergy status to sulfonamides; Z88.5 Allergy status to narcotic agent; Z88.8 Allergy status to other drugs, medicaments and biological substances; Z91.89 Other specified personal risk factors, not elsewhere classified

== ENCOUNTER → 2017-01-25 | Outpatient (CLI) | payer MEDICARE, MEDICAID ==
[~2017-01-25] MED LIST changes: +HYDR-3363 PO; +LEUP375KIT; +plaquinel PO
--- NOTE | 2017-01-25 10:44 | REP ---
Clinical: Cough . Comparison: 07/02/2016 . Technique: PA and lateral. Findings: The mediastinum and cardiac silhouette are normal. The lung arriola are clear and without acute focal consolidation, effusion, or pneumothorax. The skeletal structures are intact and normal. Impression: 1. No acute cardiopulmonary process or focal consolidation. Bronchitis cannot be excluded. Signed by Jones Maynard MD 01/25/2017 10:35 A
== END ==
LOC: M LRY 09:56
PROVIDERS: ATTEND Nurse Practitioner Family
DX: R05 Cough (principal); J02.0 Streptococcal pharyngitis; R53.81 Other malaise; J40 Bronchitis, not specified as acute or chronic
CPT/HCPCS: 71020; 87880; G0463

== ENCOUNTER 2017-03-14 21:42 | Emergency (ER) | payer MEDICARE, MEDICAID, OTHER ==
[2017-03-15] MEDS: hydrOXYzine 25 MG TAB PO (00:30)
[2017-03-15 00:58] LABS: BASO % 0.4 % (0.0-1.0); EOS # 0.2 10^3/uL (0.0-0.50); EOS % 2.3 % (0.0-3.0); HEMATOCRIT 37.6 % (36.0-47.0); HEMOGLOBIN 12.1 g/dl (12.0-16.0); IMMATURE GRANULOCYTE % 0.3 % (0-0); LYMPH # 2.6 10^3/uL (1.5-4.5); LYMPH % 26.7 % (24.0-44.0); MEAN CORPUSCULAR HEMOGLOBIN 25.9 pg (27.0-33.0); MEAN CORPUSCULAR HGB CONC 32.2 g/dl (32.0-36.5); MEAN CORPUSCULAR VOLUME 80.3 fl (80.0-96.0); MONO # 0.7 10^3/uL (0.0-0.8); NEUTROPHILS # 6.1 10^3/uL (1.8-7.7); NEUTROPHILS % 63.3 % (36.0-66.0); PLATELET COUNT, AUTOMATED 290 10^3/uL (150-450); RED BLOOD COUNT 4.68 10^6/uL (4.00-5.40); RED CELL DISTRIBUTION WIDTH 14.5 % (11.5-14.5); WHITE BLOOD COUNT 9.6 10^3/uL (4.0-10.0)
[2017-03-15 01:05] LABS: PROTHROMBIN TIME 13.3 SECONDS (12.4-14.5)
[2017-03-15 01:06] LABS: PARTIAL THROMBOPLASTIN TIME 30.1 SECONDS (26.8-37.9)
[2017-03-15 01:07] LABS: ALBUMIN 3.7 GM/DL (3.2-5.2); ALKALINE PHOSPHATASE 110 U/L (45-117); ALT/SGPT 31 U/L (12-78); ANION GAP 7 MEQ/L (8-16); AST/SGOT 20 U/L (7-37); BILIRUBIN,DIRECT 0.2 MG/DL (0.0-0.2); BILIRUBIN,TOTAL 0.5 MG/DL (0.2-1.0); BLOOD UREA NITROGEN 21 MG/DL (7-18); CALCIUM LEVEL 8.9 MG/DL (8.5-10.1); CARBON DIOXIDE LEVEL 26 MEQ/L (21-32); CHLORIDE LEVEL 105 MEQ/L (98-107); CREATININE FOR GFR 0.78 MG/DL (0.55-1.02); GLOMERULAR FILTRATION RATE > 60.0 (>58); GLUCOSE, FASTING 95 MG/DL (70-105); POTASSIUM SERUM 4.1 MEQ/L (3.5-5.1); SODIUM LEVEL 138 MEQ/L (136-145); TOTAL PROTEIN 7.8 GM/DL (6.4-8.2)
== END 2017-03-15 01:26 | disposition home or self-care (01) ==
LOC: M ED 03-15 01:26
DX: R60.0 Localized edema (principal); H10.213 Acute toxic conjunctivitis, bilateral; M32.9 Systemic lupus erythematosus, unspecified; J45.909 Unspecified asthma, uncomplicated; I10 Essential (primary) hypertension; K21.9 Gastro-esophageal reflux disease without esophagitis; G43.909 Migraine, unspecified, not intractable, without status migrainosus; Z86.711 Personal history of pulmonary embolism; Z87.19 Personal history of other diseases of the digestive system; Z79.01 Long term (current) use of anticoagulants; Z79.899 Other long term (current) drug therapy; Z88.0 Allergy status to penicillin; Z88.2 Allergy status to sulfonamides; Z91.89 Other specified personal risk factors, not elsewhere classified; Z88.5 Allergy status to narcotic agent; Z88.6 Allergy status to analgesic agent
CPT/HCPCS: 93970

== ENCOUNTER → 2017-04-05 | Outpatient (CLI) | payer MEDICARE, MEDICAID ==
[2017-04-05 14:07] LABS: BASO % 0.5 % (0.0-1.0); EOS # 0.2 10^3/uL (0.0-0.50); EOS % 2.4 % (0.0-3.0); HEMATOCRIT 37.4 % (36.0-47.0); HEMOGLOBIN 11.9 g/dl (12.0-16.0); IMMATURE GRANULOCYTE % 0.4 % (0-0); LYMPH # 2.4 10^3/uL (1.5-4.5); LYMPH % 29.3 % (24.0-44.0); MEAN CORPUSCULAR HEMOGLOBIN 25.9 pg (27.0-33.0); MEAN CORPUSCULAR HGB CONC 31.8 g/dl (32.0-36.5); MEAN CORPUSCULAR VOLUME 81.3 fl (80.0-96.0); MONO # 0.5 10^3/uL (0.0-0.8); MONO % 5.4 % (0.0-5.0); NEUTROPHILS # 5.2 10^3/uL (1.8-7.7); PLATELET COUNT, AUTOMATED 352 10^3/uL (150-450); RED CELL DISTRIBUTION WIDTH 13.7 % (11.5-14.5); WHITE BLOOD COUNT 8.3 10^3/uL (4.0-10.0)
== END ==
LOC: M SMT 08:50
DX: D64.9 Anemia, unspecified (principal)
CPT/HCPCS: 85025

== ENCOUNTER → 2017-10-29 | Outpatient (CLI) | payer MEDICARE, MEDICAID | LOC: M RAD 17:19 | DX: N83.292 Other ovarian cyst, left side (principal) | CPT/HCPCS: 76856 ==

== ENCOUNTER → 2018-01-22 | Outpatient (REF) | payer MEDICARE, MEDICAID | LOC: M SFHCLERA 18:56 | DX: B34.9 Viral infection, unspecified (principal) ==

== ENCOUNTER 2018-07-30 18:26 | Emergency (ER) | payer MEDICARE, MEDICAID ==
[~2018-07-30] VITALS: Ht 175.3 cm; Wt 109.1 kg
[~2018-07-30 18:26] MED LIST changes: -/AMLO25TA PO; +HYDR-3715 PO; +MILK120011 PO; -MILKSUS PO; -MIRA255PW PO; +NORC1TAB7 PO; -NORCOTAB PO; +NORV2TAB PO; +POLY1POW4 PO; +VICO5TAB17 PO; +VIST25CA PO; +VYVA40CA3 PO; +ZOFR4TAB14 PO; -ZOFR4TAB3 PO
[2018-07-30] MEDS ORDERED: NORCO, ANEXSIA 5/325MG TABLET (HYDROcodone/ACETAMINOPHEN) PO ONE (22:30)
--- NOTE | 2018-07-31 00:25 | REPVR ---
EXAM: US Pelvis Complete, Transabdominal EXAM DATE/TIME: 07/30/2018 11:33 PM CLINICAL HISTORY: 43 years old, female; Pelvic pain; Prior surgery; Surgery date: 6+ months; Surgery type: Hysterectomy; Additional info: Llq pain, HX partial oophorectomy, cysts TECHNIQUE: Imaging protocol: Real-time transabdominal pelvic ultrasound with image documentation. Complete exam. COMPARISON: US PELVIC NON-OB COMPLETE 10/29/2017 5:38 PM FINDINGS: Uterus/cervix: Status post hysterectomy. Right adnexa: Right ovary measures 3.2 x 1.9 x 1.5 cm. Dominant follicle in the right ovary measuring 1.5 x 1.4 x 1.1 cm. Normal vascular flow. Left adnexa: Left ovary measures 4.1 x 3.1 x 2.2 cm. Normal vascular flow. Complex cyst with septation in the left ovary measuring 3.2 x 0.6 x 1.6 cm. Free fluid: No free fluid. Bladder: Normal. IMPRESSION: Dominant follicle in the right ovary measuring 1.5 x 1.4 x 1.1 cm. Complex cyst with septation in the left ovary measuring 3.2 x 0.6 x 1.6 cm. followup is recommended. No evidence of torsion. Electronically signed by: Brisa Nieves On 07/31/2018 00:25:07 AM
[2018-07-31] MEDS ORDERED: NORCO 5/325MG TABLET (BULK FOR ED) PO ONE (00:30)
[2018-07-31] MEDS ORDERED: NORC1TAB7 PO (00:31)
[2018-07-31 00:38] VITALS: BP 134/89
--- NOTE | 2018-07-31 13:43 | ED PDOC ---
Post-Departure Follow-Up dr herr faxed formal report of pelvic us for fu Layne Jane MD July 31, 2018 13:43
== END 2018-07-31 00:42 | disposition home or self-care (01) ==
LOC: M ED 18:26
DX: N83.01 Follicular cyst of right ovary (principal); N83.292 Other ovarian cyst, left side; I10 Essential (primary) hypertension; N80.9 Endometriosis, unspecified; D25.9 Leiomyoma of uterus, unspecified; Z86.711 Personal history of pulmonary embolism; Z88.0 Allergy status to penicillin; Z88.1 Allergy status to other antibiotic agents; Z88.2 Allergy status to sulfonamides; Z88.5 Allergy status to narcotic agent; Z88.8 Allergy status to other drugs, medicaments and biological substances; Z91.048 Other nonmedicinal substance allergy status; Z79.01 Long term (current) use of anticoagulants

== ENCOUNTER 2019-01-26 23:41 | Emergency (ER) | payer MEDICARE, MEDICAID ==
[~2019-01-26] VITALS: Ht 180.3 cm; Wt 109.1 kg
[2019-01-26] MEDS ORDERED: VYVA50CA4 (23:47)
[2019-01-26] MEDS ORDERED: PRED50TA (23:47)
[2019-01-27] MEDS ORDERED: ANEXSIA, NORCO 7.5MG/325MG TABLET(HYDROCODONE/APAP) PO ONE (01:30)
[2019-01-27] MEDS ORDERED: NORC1TAB8 PO (02:17)
[2019-01-27 02:25] VITALS: BP 143/85
== END 2019-01-27 02:27 | disposition home or self-care (01) ==
LOC: M ED 23:41
DX: M25.50 Pain in unspecified joint (principal); M32.9 Systemic lupus erythematosus, unspecified; I10 Essential (primary) hypertension; F41.9 Anxiety disorder, unspecified; J45.909 Unspecified asthma, uncomplicated; N80.9 Endometriosis, unspecified; Z86.69 Personal history of other diseases of the nervous system and sense organs; Z86.711 Personal history of pulmonary embolism; Z88.0 Allergy status to penicillin; Z88.2 Allergy status to sulfonamides; Z88.6 Allergy status to analgesic agent; Z91.048 Other nonmedicinal substance allergy status; Z79.01 Long term (current) use of anticoagulants; Z79.899 Other long term (current) drug therapy

== ENCOUNTER → 2019-04-13 | Outpatient (CLI) | payer MEDICARE, MEDICAID ==
[~2019-04-13] MED LIST changes: +NORC1TAB8 PO; +PRED50TA; +VYVA50CA4
--- NOTE | 2019-04-13 15:11 | REPMRS ---
Patient History The patient states she has not had a clinical breast exam in over a year. Patient is nulliparous. Family history of breast cancer at age 50 in mother. Digital Woman Screen Mammo: April 13, 2019 - Exam #: [id number] Bilateral CC and MLO view(s) were taken. Technologist: Renay Styles, Technologist Prior study comparison: June 26, 2012, bilateral digital mammo screening bilat, performed at [facility]. FINDINGS: There are scattered fibroglandular densities. Considerable involutional change has taken place since the June 26 2012 prior study. There is a 2.7 cm somewhat elongate micronodular asymmetric opacity in the medial and superior aspect of the right breast posterior third which merits further evaluation. This does not appear to have been present previously. There has been no other change in the appearance of the mammogram from the prior studies. There is a mild amount of scattered fibroglandular density which is fairly symmetric. There is no other interval development of dominant mass, architectural distortion, or grouped microcalcification suggestive of malignancy. 3-D tomosynthesis shows no additional findings. Assessment: BI-RADS/ACR category 0 mammogram, Incomplete. Need additonal imaging evaluation and/or prior mammograms for comparison. Recommendation Ultrasound and special view mammogram of the right breast. Annual screening Breast MRI scanniing is recommended for patient's whose lifetime risk assessment is over 20%.This patient's Lifetime Breast Cancer Risk is estimated at 27.9 %. This mammogram was interpreted with the aid of an FDA-approved computer-aided dectection system. Breast MRI of both breasts in 6 months. Electronically Signed By: Gene Barksdale MD 04/13/19 [id number]
--- NOTE | 2019-04-13 15:45 | REP ---
Pelvic ultrasound including transabdominal, endovaginal and Doppler ultrasound assessment: Comparison is 07/30/2018. The uterus is surgically absent. Right ovary: The right ovary measures 1.7 x 1.2 x 1.7 centimeters. There is no dominant mass or cyst. With color Doppler assessment there is vascular flow in the right ovary. Left ovary: The left ovary measures 4.5 x 2 point of by 2.5 cm. There is a left ovarian cyst measuring 4.1 x 2.4 x 1.7 cm. On the comparison study there was a left ovarian cyst that measured 3.2 x 1.6 x 0.6 cm. There is vascular flow in the left ovary with color Doppler assessment. No free fluid in the pelvis. Impression: There is a left ovarian cyst measuring 4.5 x 2.5 x 2.5 cm. On the comparison study there was a left ovarian cyst that measured 3.2 x 1.6 x 0.6 cm. Electronically Signed by John Rasmussen MD 04/13/2019 03:37 P
== END ==
LOC: M WHC 12:59
PROVIDERS: ATTEND Specialist
DX: N80.9 Endometriosis, unspecified (principal); Z12.31 Encounter for screening mammogram for malignant neoplasm of breast; Z80.3 Family history of malignant neoplasm of breast; N83.202 Unspecified ovarian cyst, left side

== ENCOUNTER → 2019-07-27 | Outpatient (CLI) | payer MEDICARE, MEDICAID ==
--- NOTE | 2019-07-27 17:53 | REP ---
DIGITAL DIAGNOSTIC UNILATERAL RIGHT BREAST MAMMOGRAPHY WITH CAD, AND FOCUSED RIGHT BREAST SONOGRAPHY: HISTORY: Screening mammography April 13, 2019 was BI-RADS category 0 because of a somewhat nodular 2.7 cm density in the superior aspect of the right breast. Diagnostic imaging was recommended. Comparison is also made with mammography from June 26, 2012. MAMMOGRAPHIC FINDINGS: Magnified focal spot compression CC, MLO, and true mediolateral views are obtained. A nonmagnified true mediolateral view is obtained as well. The somewhat elongate relatively low attenuation micro lobular density is again seen superiorly and slightly medially in the right breast at the 1-o'clock position mammographically, posterior third. No spiculation or microcalcification is observed. Scattered fibroglandular elements are seen distributed in the upper outer quadrant of the right breast, as before. No other mammographic finding. SONOGRAPHIC FINDINGS: The right breast is scanned sonographically from 10-o'clock to 2-o'clock position. Heterogeneous fibroglandular background echotexture is seen. There is an 8 mm cyst at approximately 10-o'clock position 3 cm from the nipple. An isoechoic area is measured at 8 mm and diameter by the technologist in the 10-o'clock position as well. This is felt to be consistent with normal breast parenchyma. There is no sonographic correlate that is felt to correspond to the mammographic opacity which measures up to 2.7 cm in length. No sonographically suspicious finding. IMPRESSION: BIRADS 4: BI-RADS/ACR category 4 mammogram. Suspicious Abnormality - biopsy should be considered. BI-RADS category 4 suspicious right breast imaging. Asymmetric microlobulated low attenuation 2.7 cm density in the right breast superiorly. No sonographic correlate. Stereotactic needle biopsy recommended. Marker clip placement and post clip placement mammography recommended. This mammogram was interpreted with the aid of an FDA-approved computer-aided detection system. The patient states that she/he has not had a clinical breast exam in over a year. The patient letter being requested is M#[id number].
== END ==
LOC: M WHC 13:26
PROVIDERS: ATTEND Specialist
DX: N60.01 Solitary cyst of right breast (principal); R92.8 Other abnormal and inconclusive findings on diagnostic imaging of breast

== ENCOUNTER → 2019-08-27 | Outpatient (CLI) | payer MEDICARE, MEDICAID ==
[~2019-08-27] MED LIST changes: +LISI10TA22 PO; -LISI10TA4 PO
--- NOTE | 2019-08-27 10:40 | REP ---
FOCUSED RIGHT BREAST SONOGRAPHY: HISTORY: Right breast mass. 10 o'clock position, 10 cm from the nipple. FINDINGS: Scanning of the right breast in the area of the 10-o'clock position palpable mass shows normal subcutaneous and fibroglandular tissues. No cyst, mass, architectural distortion or fibrosis is apparent. IMPRESSION: BIRADS category 1 negative findings. Clinical followup is advised.
== END ==
LOC: M WHC 09:33
PROVIDERS: ATTEND Surgery
DX: N63.11 Unspecified lump in the right breast, upper outer quadrant (principal)

== ENCOUNTER → 2019-09-03 | Outpatient (CLI) | payer MEDICARE, OTHER, MEDICAID ==
[~2019-09-03] MED LIST changes: -LISI10TA22 PO; +LISI10TA4 PO
[2019-09-03 16:16] VITALS: BP 158/80
--- NOTE | 2019-09-03 23:38 | REP ---
POST BIOPSY MAMMOGRAM RIGHT BREAST: ML and CC views of the right breast are performed following stereotactic biopsy of a lobulated band-like density in the upper aspect. There is a biopsy clip at that location with post biopsy hematoma focally. Clip appears to be in appropriate position.
--- NOTE | 2019-09-04 11:02 | REP ---
STEREOTACTIC RIGHT BREAST BIOPSY The procedure was performed under the direct supervision of Dr. Baig The patient has a history of an asymmetric micro lobulated low attenuation 2.7 cm density in the right breast superiorly seen on a previous mammogram dated 07/27/2019. The risks and benefits of the procedure were explained to the patient and informed consent was obtained. A craniocaudal approach was utilized. The density was localized using stereotactic mammographic guidance. 1% buffered Xylocaine was used as a local anesthetic. An 10 gauge, suction assisted Mammotome needle was inserted and 6 core biopsy samples were obtained. A marker clip was placed at the biopsy site. The patient tolerated the procedure well and there were no immediate complications. After the appropriate amount of monitored convalescence, the patient was discharged from the department. Electronically Signed by ZEFERINO Ryder 09/03/2019 03:21 P Electronically Signed by John Baig MD 09/03/2019 03:39 P
== END ==
LOC: M WHCPRO 12:51
PROVIDERS: ATTEND Surgery
DX: N60.21 Fibroadenosis of right breast (principal)

== ENCOUNTER 2020-05-29 15:37 | Emergency (ER) | payer MEDICARE, MEDICAID ==
[~2020-05-29] VITALS: Ht 175.3 cm; Wt 106.2 kg
[~2020-05-29 15:37] MED LIST changes: +LISI10TA22 PO; -LISI10TA4 PO
[2020-05-29] MEDS ORDERED: PERCOCET 5MG/325MG TAB PO ONE (17:00)
[2020-05-29] MEDS ORDERED: CLINDAMYCIN 150MG CAPSULE PO ONE (17:00)
[2020-05-29] MEDS ORDERED: PERC5TAB12 PO (17:03)
[2020-05-29] MEDS ORDERED: CLEO300C2 PO (17:03)
[2020-05-29 17:14] VITALS: BP 148/85
[2020-05-29] MEDS ORDERED: HYDR-3715 PO (17:20)
== END 2020-05-29 17:17 | disposition home or self-care (01) ==
LOC: M ED 15:37
DX: K04.7 Periapical abscess without sinus (principal); K08.89 Other specified disorders of teeth and supporting structures; I10 Essential (primary) hypertension; K21.9 Gastro-esophageal reflux disease without esophagitis; Z88.1 Allergy status to other antibiotic agents; Z88.2 Allergy status to sulfonamides; Z88.6 Allergy status to analgesic agent; Z79.899 Other long term (current) drug therapy; Z79.01 Long term (current) use of anticoagulants

== ENCOUNTER → 2020-09-26 | Outpatient (CLI) | payer MEDICARE, MEDICAID ==
[~2020-09-26] MED LIST changes: +CLEO300C2 PO
--- NOTE | 2020-09-26 14:19 | REPMRS ---
Patient History The patient states she has not had a clinical breast exam in over a year. Family history of breast cancer at age 50 in mother. Benign stereotatic loc for ea lesion. of the right breast, September 03, 2019. Diagnostic Bilateral Mammo: September 26, 2020 - Exam #: [id number] Bilateral CC and MLO view(s) were taken. Technologist: Charlotte Meehan, RT Prior study comparison: July 27, 2019, right breast diagnostic unilateral mammo performed at [facility]. April 13, 2019, bilateral digital woman screen mammo performed at [facility]. FINDINGS: There are scattered fibroglandular densities. The Volpara volumetric breast density category is:B. There is a needle biopsy marker clip noted in the right breast. The lesion identified on the July 27, 2019 prior study is no longer visualized. There has been no change in the appearance of the mammogram from the prior studies. There is a mild amount of scattered fibroglandular density which is fairly symmetric. There is no interval development of dominant mass, architectural distortion, or grouped microcalcification suggestive of malignancy. 3-D tomosynthesis shows no additional findings. Assessment: BI-RADS/ACR category 2 mammogram. Benign Findings. Recommendation Breast MRI of both breasts in 6 months. Routine screening mammogram of both breasts in 1 year (for women over age 40). This patient's [facility] Lifetime Breast Cancer Risk is estimated at 27.4 %. Patients whose estimated lifetime breast cancer risk assessment is greater than 20% merit annual screening breast MRI scanning in addition to annual mammography. This mammogram was interpreted with the aid of an FDA-approved computer-aided dectection system. Electronically Signed By: Gene Barksdale MD 09/26/20 [id number]
== END ==
LOC: M WHC 12:58
PROVIDERS: ATTEND Surgery
DX: R92.8 Other abnormal and inconclusive findings on diagnostic imaging of breast (principal)
CPT/HCPCS: 77066; G0279

== ENCOUNTER → 2020-11-03 | Outpatient (CLI) | payer MEDICARE, MEDICAID ==
[2020-11-03 15:35] LABS: HEMATOCRIT 39.6 % (36.0-47.0); HEMOGLOBIN 12.1 g/dl (12.0-15.5); MEAN CORPUSCULAR HEMOGLOBIN 25.7 pg (27.0-33.0); MEAN CORPUSCULAR HGB CONC 30.6 g/dl (32.0-36.5); MEAN CORPUSCULAR VOLUME 84.1 fl (80.0-96.0); PLATELET COUNT, AUTOMATED 293 10^3/uL (150-450); RED BLOOD COUNT 4.71 10^6/uL (4.00-5.40); WHITE BLOOD COUNT 7.6 10^3/uL (4.0-10.0)
[2020-11-03 16:48] LABS: ALBUMIN 3.6 GM/DL (3.2-5.2); ALT/SGPT 22 U/L (12-78); BILIRUBIN,TOTAL 0.8 MG/DL (0.2-1.0); BLOOD UREA NITROGEN 10 MG/DL (7-18); CALCIUM LEVEL 9.6 MG/DL (8.5-10.1); CARBON DIOXIDE LEVEL 29 MEQ/L (21-32); CHLORIDE LEVEL 104 MEQ/L (98-107); CREATININE FOR GFR 0.93 MG/DL (0.55-1.30); FREE T4 1.15 NG/DL (0.76-1.46); GLOMERULAR FILTRATION RATE > 60.0 (>58); GLUCOSE, FASTING 88 MG/DL (70-100); POTASSIUM SERUM 4.1 MEQ/L (3.5-5.1); SODIUM LEVEL 139 MEQ/L (136-145); TOTAL PROTEIN 7.9 GM/DL (6.4-8.2)
== END ==
LOC: M PLALAB 11:20
PROVIDERS: ATTEND Specialist
DX: R10.2 Pelvic and perineal pain (principal); Z79.899 Other long term (current) drug therapy
CPT/HCPCS: 36415; 80053; 84439; 84443; 85027; G0463

== ENCOUNTER → 2021-01-13 | Outpatient (REF) | payer MEDICARE, MEDICAID | LOC: M SFHCPLAZ 11:32 | PROVIDERS: ATTEND Family Medicine | DX: R53.83 Other fatigue (principal); M32.9 Systemic lupus erythematosus, unspecified ==

== ENCOUNTER → 2021-01-19 | Outpatient (CLI) | payer MEDICARE, MEDICAID ==
[2021-01-19 14:34] LABS: BASO # 0.1 10^3/uL (0.0-0.2); BASO % 0.6 % (0.0-1.0); EOS # 0.5 10^3/uL (0.0-0.5); EOS % 5.8 % (0.0-3.0); HEMATOCRIT 38.4 % (36.0-47.0); HEMOGLOBIN 11.6 g/dl (12.0-15.5); LYMPH # 2.6 10^3/uL (1.5-5.0); MEAN CORPUSCULAR HEMOGLOBIN 25.6 pg (27.0-33.0); MEAN CORPUSCULAR HGB CONC 30.2 g/dl (32.0-36.5); MEAN CORPUSCULAR VOLUME 84.8 fl (80.0-96.0); MONO # 0.5 10^3/uL (0.0-0.8); MONO % 6.1 % (2.0-8.0); NEUTROPHILS # 4.4 10^3/uL (1.5-8.5); PLATELET COUNT, AUTOMATED 311 10^3/uL (150-450); RED BLOOD COUNT 4.53 10^6/uL (4.00-5.40); WHITE BLOOD COUNT 8.1 10^3/uL (4.0-10.0)
[2021-01-19 15:55] LABS: ALBUMIN 3.8 GM/DL (3.2-5.2); ALT/SGPT 37 U/L (12-78); BILIRUBIN,TOTAL 0.5 MG/DL (0.2-1.0); BLOOD UREA NITROGEN 15 MG/DL (7-18); CARBON DIOXIDE LEVEL 31 MEQ/L (21-32); CHLORIDE LEVEL 106 MEQ/L (98-107); CREATININE FOR GFR 0.89 MG/DL (0.55-1.30); FREE T4 0.99 NG/DL (0.76-1.46); GLOMERULAR FILTRATION RATE > 60.0 (>58); GLUCOSE, FASTING 93 MG/DL (70-100); IRON (FE) 63 UG/DL (50-170); PERCENT SATURATION 19.9 % (13.2-45.0); POTASSIUM SERUM 4.4 MEQ/L (3.5-5.1); SODIUM LEVEL 140 MEQ/L (136-145); TOTAL IRON BINDING CAPACITY 316 UG/DL (250-450); TOTAL PROTEIN 7.5 GM/DL (6.4-8.2)
== END ==
LOC: M PLALAB 10:20
PROVIDERS: ATTEND Student in an Organized Health Care Education/Training Program
DX: R53.83 Other fatigue (principal); M32.9 Systemic lupus erythematosus, unspecified

== ENCOUNTER → 2021-07-04 | Outpatient (CLI) | payer MEDICARE, MEDICAID | LOC: M PLALAB 15:09 | PROVIDERS: ATTEND Student in an Organized Health Care Education/Training Program | DX: R53.83 Other fatigue (principal) ==

== ENCOUNTER → 2021-12-15 | Outpatient (CLI) | payer MEDICARE, MEDICAID ==
[2021-12-15 15:55] LABS: BASO % 0.3 % (0.0-1.0); EOS # 0.2 10^3/uL (0.0-0.5); EOS % 3.2 % (0.0-3.0); HEMATOCRIT 37.4 % (36.0-47.0); HEMOGLOBIN 11.5 g/dl (12.0-15.5); LYMPH # 2.6 10^3/uL (1.5-5.0); LYMPH % 34.9 % (24.0-44.0); MEAN CORPUSCULAR HEMOGLOBIN 25.6 pg (27.0-33.0); MEAN CORPUSCULAR HGB CONC 30.7 g/dl (32.0-36.5); MEAN CORPUSCULAR VOLUME 83.3 fl (80.0-96.0); MONO # 0.5 10^3/uL (0.0-0.8); MONO % 6.3 % (2.0-8.0); NEUTROPHILS # 4.1 10^3/uL (1.5-8.5); PLATELET COUNT, AUTOMATED 274 10^3/uL (150-450); RED BLOOD COUNT 4.49 10^6/uL (4.00-5.40); WHITE BLOOD COUNT 7.5 10^3/uL (4.0-10.0)
[2021-12-15 16:09] LABS: BLOOD UREA NITROGEN 17 MG/DL (7-18); CARBON DIOXIDE LEVEL 28 MEQ/L (21-32); CHLORIDE LEVEL 107 MEQ/L (98-107); CREATININE FOR GFR 0.87 MG/DL (0.55-1.30); GLOMERULAR FILTRATION RATE > 60.0 (>58); GLUCOSE, FASTING 103 MG/DL (70-100); POTASSIUM SERUM 4.1 MEQ/L (3.5-5.1); SODIUM LEVEL 138 MEQ/L (136-145)
== END ==
LOC: M PLALAB 11:46
PROVIDERS: ATTEND Student in an Organized Health Care Education/Training Program
DX: Z01.818 Encounter for other preprocedural examination (principal)

== ENCOUNTER → 2021-12-20 | Outpatient (CLI) | payer MEDICARE, MEDICAID | LOC: M PLAIMG 11:05 | PROVIDERS: ATTEND Student in an Organized Health Care Education/Training Program | DX: Z01.818 Encounter for other preprocedural examination (principal) ==